=== PATIENT | male | born 1960 | race Caucasian/White ===

== ENCOUNTER 2017-04-30 14:00 | Inpatient (IN) | payer MEDICARE, MEDICAID ==
[~2017-04-30] VITALS: Ht 182.9 cm; Wt 99.1 kg
--- NOTE | ~2017-04-30 | CATH ---
Cardiac Diagnostic Report Demographics Patient Name JUSTYN Messina Gender Male Date of 1960 Age 56 year(s) Patient Number [id number] Date of Study 05/01/2017 Visit Number [id number] Room Number G6321 [place] [id number] Ht 182.88 cm Wt 92.99 kg Referring Maykel Fry Mayuri Primary Physician Physician Performing [facility] Secondary Physician Physician Mary BEAVERS Diagnostic [facility] Assisting Physician Physician Mary BEAVERS Interventional Physician Financial Engineer Physician Findings and Conclusions Diagnostic Findings and Conclusion Multiple vessel CAD. 1. Mid and mid distal LAD 90%. 2. RCA mid 80%. 3. OM branch (large) 90%. Diagnostic Recommendations CTS to evaluate for CABG. Reviewed images with Dr. Hodges, who is agreeable with CABG. Procedure Description The patient was brought to the diagnostic cardiac catheterization-EP laboratory in the fasting, non-sedated state. Informed consent was obtained in the written and verbal form after the risks and benefits were explained. The patient had no further questions and agreed to proceed. The planned puncture-incision site(s) were shaved and prepped with ChloraPrep and draped in the usual sterile manner. Conscious sedation, supplemental oxygen, and pain control medications were delivered by a registered nurse under physician guidance. Surface ECG rhythm, blood pressure measurement, and pulse oximetry were monitored throughout the procedure. Arterial access. The access site was infiltrated with lidocaine. The vessel was entered with the Seldinger technique. A sheath was advanced into the vessel and used for catheter placement. Selective left coronary angiography. A catheter was advanced into the left coronary vessel ostium under Fluoroscopic guidance. Contrast was injected by hand. Images were obtained in multiple projections. Selective right coronary angiography. A catheter was advanced into the right coronary vessel ostium under fluoroscopic guidance. Contrast was injected by hand. Images were obtained in multiple projections. Left heart catheterization. A catheter was advanced across the aortic valve to the left ventricle under fluoroscopic guidance. Resting hemodynamics were obtained. Arterial artery hemostasis was achieved. The patient was transferred to a regular nursing floor via cart accompanied by a nurse. The patient left the laboratory in stable condition. Diagnostic Cath Status: Urgent Procedure Procedure Type Diagnostic procedure:Angiography:, Coronary Angios w/[facility] Indications: Chest pain, Diabetes, Hypertension and Dyslipidemia. The procedure was explained in detail to the patient. Risks, complications and alternative treatments were reviewed. Written consent was obtained. Medications Reviewed with Patient prior to Procedure. Angiographic Findings Dominance: Right Cardiac Arteries and Lesion Findings LMCA: Lesion on LMCA: Mid subsection.40% stenosis . LAD: Lesion on Prox LAD: Proximal subsection.30% stenosis . Lesion on Mid LAD: Mid subsection.70% stenosis . Lesion on Dist LAD: Distal subsection.90% stenosis . Lesion on 3rd Diag: Ostial.70% stenosis . Comments:large diag 3. LCx: Lesion on Mid CX: Mid subsection.70% stenosis . Lesion on 1st Ob Ana Luisa: Proximal subsection.90% stenosis . RCA: Lesion on Mid RCA: Mid subsection.80% stenosis . Comments:long lesion. Lesion on 1st RPL: Proximal subsection.60% stenosis . Lesion on R PDA: Comments:PDA small severe diffusely diseased. Ramus: Lesion on Ramus: 20% stenosis . Comments:small Coronary Tree Procedure Data Procedure Date Date: 05/01/2017Start: 01:14 PMEnd: 01:45 PM Entry Locations - Retrograde Percutaneous access was performed through the Right Radial artery (Primary location). A 6 Fr sheath was inserted. Hemostasis was successfully obtained using Mechanical Compression. Closure Comments: 12 ml's of air in radial band placed by Carolynn Pride. Procedure Medications Order and Administration + + + + + !Time !Medication !Dosage !Route ! + + + + + !05/01/2017 01:12 PM !Versed !1 mg !I.V. ! + + + + + !05/01/2017 01:13 PM !Fentanyl !50 mcg !I.V. ! + + + + + !05/01/2017 01:22 PM !Versed !0.5 mg !I.V. ! + + + + + !05/01/2017 01:27 PM !Heparin (ACC_3) !5000 units !I.V. bolus ! + + + + + !05/01/2017 01:35 PM !Oxygen !4 l/min !NC ! + + + + + !05/01/2017 01:38 PM !Oxygen !2 l/min !NC ! + + + + + Devices Used - A5 Fr. BS JR 4 Diag. Catheterwas used for:Right coronary angiography. - A5 Fr. BS JL 3.5 Diag. Catheterwas used for:Left coronary angiography. Contrast Material - Isovue 74983 ml Fluoroscopy Time: Diagnostic: 2:48 minutes. Total: 2:48 minutes. Fluoroscopy Dose: Diagnostic: 952 mGy. Total: 952 mGy. Estimated Blood Loss: 10 ml. Medical History Performed Procedures and Imaging Results - No ACC stress or imaging studies were performed. History of Disease + + + + !Diagnosis !Date !Comments ! + + + + !Hypertension ! ! ! + + + + !Diabetes ! ! ! + + + + Allergies - No known allergies. Risk Factors The patient risk factors include:treated hypercholesterolemia, treated hypertension, orally-treated diabetes mellitus, last creatinine: 1.1 mg/dl, creatinine clearance: 99.8 ml/min, dyslipidemia and Current/Recent(w/in 1 year) tobacco use. Admission Data Admission Date: 04/30/2017 Admission Time: 03:08 PM Admit Source: [facility] Insurance Payors: Medicare. Admission Medications + +------+------+ +---------+ + + !Medication !Dosage!Times !Last !Last !Administered !Comments ! ! ! !Per !Delivery !Delivery ! ! ! ! ! !Day !Date !Time ! ! ! + +------+------+ +---------+ + + !ARB (any) ! ! !05/01/2017 !12:00 AM !Yes ! ! + +------+------+ +---------+ + + !Statin (any)! ! !05/01/2017 !12:00 AM !Yes ! ! + +------+------+ +---------+ + + !Aspirin ! ! !05/01/2017 !12:00 AM !Yes ! ! !(any) ! ! ! ! ! ! ! + +------+------+ +---------+ + + !YAHIR ! ! !05/01/2017 !12:00 AM !Yes ! ! !Inhibitor ! ! ! ! ! ! ! !(any) ! ! ! ! ! ! ! + +------+------+ +---------+ + + !Beta Kelsey! ! !05/01/2017 !12:00 AM !Yes ! ! !(any) ! ! ! ! ! ! ! + +------+------+ +---------+ + + !Nitrates (iv! ! ! ! ! ! ! !or buccal) ! ! ! ! ! ! ! + +------+------+ +---------+ + + Clinical Evaluation Leading to Procedure - The patient's CAD presentation was assessed as: Non-STEMI. - The patient's anginal syndrome during the past two weeks was assessed as: Class IV according to the [place] Cardiovascular Society Classification System (CCS). Anti-anginal medications were prescribed during the past two weeks. The medication is: Beta Blockers. - The patient has been in a state of heart failure within the past two weeks. - The patient's heart failure status was assessed as NYHA Class II. Hemodynamics Condition: Rest O2 Consumption: Estimated: 246.29Heart Rate: 60 bpm Pressures (mmHg) +-----+ + !Site !Pressure ! +-----+ + !LV !107/0 ,10 ! +-----+ + !LV !112/2 ,12 ! +-----+ + !LV !103/3 ,14 ! +-----+ + !AO !107/59 (79) ! +-----+ + !LV !98/3 ,13 ! +-----+ + !AO !111/60 (81) ! +-----+ + Valve Gradients and Areas + +---------+---------+---------+ +---------+ + !Valve !Peak !Mean !Area !Index !Flow !Source ! + +---------+---------+---------+ +---------+ + !Aortic !0 !0 ! ! ! ! ! + +---------+---------+---------+ +---------+ + !Aortic !0 !0 ! ! ! ! ! + +---------+---------+---------+ +---------+ + Shunts Oxygen Values O2 Capacity 208.08 O2 Consumption 246.29 Signatures dtt: MARY SOLIS dtd: 05/01/17 1314 Physician Self Edit
--- NOTE | ~2017-04-30 | PUL ---
PATIENT'S NAME: JOHN ALEJANDRA [facility] AGE: 56 Y [address] ROOM: [address] [address] LOCATION: [facility] ADMIT DATE: 05/02/2017 Pulmonary DISCHARGE DATE: FAMILY PHYSICIAN: OZZIE AMOR MD ATTENDING PHYSICIAN: Walter Mondragon NAME OF PROCEDURE: Bedside Spirometry DATE OF PROCEDURE: May 02, 2017 TECH: TMeents, FINANCIAL SALES ASSISTANT REASON FOR EXAM: Pre-surgical evaluation RESULTS: FVC was 3.81 liters which is 72% of predicted and low, FEV1 was 3.5 liters which is 87% of predicted and normal, and FEV1/FVC was 91.9% and normal. The flow volume curve did not reveal any significant airflow limitation. However, the patient had multiple hesitations and during the expiratory and inspiratory maneuvers. After bronchodilator administration FVC increased to 4.13 liters which is an 8% increase and FEV1 decreased to 3.43 liters. FEV1/FVC was 83%. PHYSICIAN INTERPRETATION: The patient has no airflow limitation and no significant bronchodilator response. The results have to be interpreted with care as the patient's maneuvers were not reproducible. MD KEMAL DÍAZ/terrence /[id number] dtt: 05/03/17 1428 , JOE CHAPMAN dtd: 05/03/17 1322
--- NOTE | ~2017-04-30 | ENPV ---
Carotid Duplex Study Demographics Patient Name JOHN ALEJANDRA Date of Study 05/02/2017 Patient Number [id number] Gender Male Date of 1960 Age 56 Visit Number [id number] Height 72 Accession Number [id number] Weight 205 Referring Carroll Rodgers DO Interpreting Hussain Worthy MD Physician Maykel Messina MD Physician Physician Ordering Carroll Rodgers Aboriginal Education Teacher Physician DO Diamond Die Maker Shant Johnson [facility] Conclusions Summary The right internal carotid artery has mild, 1-39%, plaque and stenosis. The right vertebral artery is present with antegrade flow. The left internal carotid artery has moderate, 40-59%, plaque and stenosis. The left vertebral artery is present with antegrade flow. Procedure Type of Study: Cerebral:Carotid, Carotid Doppler Bilateral. Indications for Study:Pre-op CABG. Appropriate Use Criteria:9 Allergies - No known allergies. Patient Status:Routine. Study Location:Inpatient Portable. Technical Quality:Adequate visualization. Risk Factors History of Disease + + + + !Diagnosis !Date !Comments ! + + + + !Hypertension ! ! ! + + + + !Diabetes ! ! ! + + + + - The patient's risk factor(s) include: orally-treated diabetes mellitus, dyslipidemia and treated arterial hypertension. - The patient has a current/recent (within 1 year) tobacco history. - The patient's last creatinine was 1.1 mg/dl. Velocities are measured in cm/s ; Diameters are measured in cm Carotid Right Measurements Carotid Left Measurements + +--------+--------+ + + + +--------+ --------+ + + !Location !PSV !EDV !Angle !%Stenosis ! !Location !PSV ! EDV !Angle !%Stenosis ! + +--------+--------+ + + + +--------+ --------+ + + !Prox CCA !124 !21 !60 ! ! !Prox CCA !170 ! 28 !60 ! ! + +--------+--------+ + + + +--------+ --------+ + + !Dist CCA !94 !28 !60 ! ! !Dist CCA !175 ! 25 !60 ! ! + +--------+--------+ + + + +--------+ --------+ + + !Prox ICA !110 !26 !60 ! ! !Prox ICA !119 ! 27 !60 ! ! + +--------+--------+ + + + +--------+ --------+ + + !Dist ICA !75 !23 !60 ! ! !Dist ICA !92 ! 18 !60 ! ! + +--------+--------+ + + + +--------+ --------+ + + !Prox ECA !158 !30 !60 ! ! !Prox ECA !240 ! 25 !60 ! ! + +--------+--------+ + + + +--------+ --------+ + + !Vertebral !42 !15 !60 ! ! !Vertebral !56 ! 13 !60 ! ! + +--------+--------+ + + + +--------+ --------+ + + !Subclavian !99 ! !60 ! ! !Subclavian !203 ! ! ! ! + +--------+--------+ + + + +--------+ --------+ + + - There is antegrade vertebral flow noted on the right side. - There is antegrade verte bral flow noted on the left side. - Add'l Measurements:ICAPSV/CCAPSV 0.89.ICAEDV/CCAEDV 1.24. - Add'l Measurements:ICAPS V/CCAPSV 0.7.ICAEDV/CCAEDV 0.96. Impressions Right Impression There is a mild amount of smooth heterogeneous plaque in the right internal carotid artery . Left Impression There is a moderate degree of smooth heterogeneous plaque in the left internal carotid artery . Signature dtt: MARISELA COSME dtd: 05/02/17 1453 Physician Self Edit
--- NOTE | ~2017-04-30 | DS ---
PATIENT'S NAME: JOHN ALEJANDRA [facility] AGE: 56 Y [address] ROOM: [address] [place], [place] [address] LOCATION: GPCU ADMIT DATE: 05/02/2017 Discharge Summary DISCHARGE DATE: 05/08/2017 FAMILY PHYSICIAN: Ang Brar MD ATTENDING PHYSICIAN: Walter Mondragon HISTORY AND HOSPITAL COURSE: The patient is a 56-year-old white male admitted as a non-STEMI on May 02, 2017, accepted by Dr. Hernandez under the ACS protocol. He went down to the cardiac catheterization lab with findings of multivessel coronary artery disease and was recommended for coronary artery bypass grafting. The patient has a complicated medical history. His secondary diagnoses include chronic pain syndrome; opioid abuse; diabetes mellitus type 2, poorly controlled with hemoglobin A1c of 10.6; anxiety/depression; diabetic peripheral neuropathy; hypertension; BPH; spinal stenosis, lumbar; tobacco abuse; hypothyroidism; GERD; bipolar disorder; myeloid leukemia, in remission; and monoclonal gammopathy. The patient was seen in Neurology and cleared prior to going down for surgery. Dr. Carcamo was contacted and the patient was noted to be in remission from his leukemia. On 05/03/2017, the patient underwent coronary artery bypass grafting x4 with a left internal mammary artery bypass to the LAD, reverse saphenous vein graft to the diagonal, reverse saphenous vein graft to the obtuse marginal, reverse saphenous vein graft to the posterolateral branch. The patient tolerated the surgery without complication. He was transferred to the ICU in an intubated fashion following the procedure. He extubated within a few hours postop. Pain control was an issue. The patient was excessively somnolent. His pain medication was adjusted. He overall did well thereafter. On postoperative day 1, the patient was found to be stable to transfer to the progressive care floor. Lines and drips were discontinued. We did add Toradol to his pain medication regime for a short period of time. When appropriate, his pacemaking wires, chest tube, and Gunter catheter were discontinued. He worked with cardiac rehab for strengthening purposes. The patient did not have any healing complications while hospitalized. He had no runs of postoperative atrial fibrillation. His diabetic medications were adjusted during the hospitalization. Care Management worked with the patient and his significant other to ascertain any needs that he may have upon discharge. The patient did not have any skilled needs. He desired to go home postoperatively, and on May 07, he was found stable for discharge. DISCHARGE ORDERS: Include ADA diet. Activity levels as per the open heart surgery discharge summary sheet. The patient was asked to follow with Dr. Saavedra and Dr. Hernandez in 2 weeks on the same day. We request that the PATIENT'S NAME: JOHN ALEJANDRA [facility] AGE: 56 Y [address] ROOM: [id number] [place] [id number] LOCATION: GPCU ADMIT DATE: 05/02/2017 Discharge Summary DISCHARGE DATE: 05/08/2017 FAMILY PHYSICIAN: Ang Brar MD ATTENDING PHYSICIAN: Walter Mondragon patient perform no pulling, pushing, or lifting heavier than 10 pounds until June 14, 2017. He may shower. We would like him to starting cardiac rehab as outpatient. He is to follow with his primary care provider, Dr. Brar. The patient was seen by diabetic educators while hospitalized. He did not desire further instruction. DISCHARGE MEDICATIONS: 1. Xanax 1 mg q.i.d. 2. Ambien 10 mg at h.s./p.r.n. 3. Prilosec 20 mg twice a day. 4. Levothyroxine 50 mcg daily. 5. Flomax 0.4 mg daily. 6. Cozaar 50 mg daily. 7. Neurontin 600 mg t.i.d. 8. Xalatan 1 drop at bedtime. 9. Breo Ellipta 100/25 mcg 1 puff per inhalation daily. 10. Vitamin D3 5000 units daily. 11. Glucophage 1000 mg twice a day. 12. Amaryl 4 mg daily. 13. [place] 10/325 mg 2 tabs t.i.d./p.r.n. 14. Lipitor 80 mg daily. 15. Nitroglycerin 0.4 mg sublingual q.5 minutes as needed. 16. Celexa 20 mg daily. 17. Cordarone 200 mg twice a day. 18. Aspirin 81 mg daily. 19. Colace 100 mg twice a day. 20. Lasix 40 mg daily. 21. Toprol-XL 25 mg daily. 22. Nicotine patch 21 mg daily. 23. Potassium chloride 20 mEq twice a day. DISPOSITION: The patient verbalizes understanding of the discharge orders. The patient discharged to home in stable condition end. LIAM DONALDSON APRN FOR SAEED SAAVEDRA DO DLQ/modl /[id number] d: 05/23/17 0238 t: 05/28/17 0826, DISCHARGE SUMMARY
--- NOTE | ~2017-04-30 | CON ---
PATIENT'S NAME: JOHN ALEJANDRA [facility] AGE: 56 Y [address] ROOM: [address] [place], [place] [address] LOCATION: GICU ADMIT DATE: 05/02/2017 Consultation DISCHARGE DATE: FAMILY PHYSICIAN: OZZIE AMOR MD ATTENDING PHYSICIAN: Walter Mondragon DATE OF CONSULTATION: 05/01/2017 REFERRING PHYSICIAN: MARY SOLIS MD REASON FOR CONSULTATION: STEMI/coronary artery disease. HISTORY OF PRESENT ILLNESS: The patient is a 56-year-old white male from [place], [place], who has been experiencing intermittent chest pain for the last 3 weeks. Yesterday, he was transferred here from the [place] [facility]. He had apparently been in a verbal altercation with some folks and started up with the chest pain, this time more severe than what it has been in the past. It was associated with diaphoresis and nausea. He called his daughters and he went into the emergency department. He was found to have an elevated CK-MB and ST depression. Dr. Solis was notified and she requested the transfer as per the ACS protocol. The patient had agreed to the heparin drip; however, he did decline nitroglycerin. He got here in a stable fashion. He was taken to the catheterization lab this morning with findings of multiple blockages, with diffuse RCA obstruction, some mild blockage to the left main and mid LAD at approximately 80% obstruction and occlusion to the OM and the diagonals. His ejection fraction was noted to be in a normal range. Given the multiple blockages, Dr. Solis felt that moving forward with a coronary artery bypass grafting was appropriate over placing stents. The patient was transferred to the progressive care floor and Dr. Saavedra was asked to see the patient in consultation regarding surgical revascularization. PAST MEDICAL HISTORY: Illnesses: Dyslipidemia; GERD; bipolar disorder; anxiety/depression; opioid abuse; peripheral neuropathy; diabetes mellitus, poorly controlled; hypothyroidism; polyneuropathy; myeloid leukemia, in remission; osteoarthritis. Surgeries/procedures: Partial thyroidectomy; pilonidal cyst excision x2; left knee surgery x5; cholecystectomy; right sural nerve biopsy; right scalp muscle nerve biopsy; and a lumbar puncture. ALLERGIES: NO KNOWN DRUG ALLERGIES. PATIENT'S NAME: JOHN ALEJANDRA [facility] AGE: 56 Y [address] ROOM: [facility] [place], [place] [address] LOCATION: [facility] ADMIT DATE: 05/02/2017 Consultation DISCHARGE DATE: FAMILY PHYSICIAN: OZZIE AMOR MD ATTENDING PHYSICIAN: Walter Mondragon SOCIAL HISTORY: The patient resides in [place]. He has a significant other. He has a couple grown daughters who live nearby. He is deemed medically disabled and therefore retired from the [employer]. He is a smoker and states that he can smoke up to 50 cigarettes per day. He does not consume alcohol. He drinks 9-12 Mountain Dews a day. FAMILY HISTORY: His mother is alive and has a history of dementia. His father has a history with coronary artery disease as well as valvular heart disease. He also had kidney failure and leukemia. ADMISSION MEDICATIONS: 1. Xanax 1 mg p.o. q.i.d. 2. Augmentin 250 mg p.o. t.i.d. for dental issues. 3. Lipitor 80 mg daily. 4. Vitamin D3 5000 units every 7 days. 5. Celexa 10 mg daily. 6. Breo Ellipta 100/25 mcg 1 puff per inhalation daily. 7. Neurontin 300 mg t.i.d. 8. Amaryl 4 mg daily. 9. [place] 10/325 mg 2 tabs t.i.d./p.r.n. 10. Xalatan 2.5 mL drops, 1 drop both eyes at bedtime. 11. Levothyroxine 50 mcg daily. 12. Cozaar 25 mg a day. 13. Glucophage 1000 mg b.i.d. 14. Nitroglycerin 0.4 mg sublingual as directed. 15. Prilosec 20 mg b.i.d. 16. Flomax 0.4 mg daily. 17. Ambien 10 mg q.h.s./p.r.n. insomnia. REVIEW OF SYSTEMS: GENERAL: No weight or appetite complaints. No fever, chills, or sweats. HEENT: Does have some age-related visual changes as well as some glaucoma. He wears glasses. No hearing complaints. No difficulty swallowing. He does have poor dentition and does have a lower [place] denture. He is in the midst of getting some dental work done. RESPIRATORY: He has been experiencing some shortness of breath as well as dyspnea on exertion. He has history of sleep apnea. He does not use a CPAP. CARDIOVASCULAR: He has had an onset of chest pain that has been intermittent for at least 3 weeks and yesterday he had fairly significant chest pain that brought him in to the emergency department. No history of murmur. No intermittent claudication or complaints of ongoing edema to the peripheral extremities. GI: No ongoing nausea, vomiting, constipation, or diarrhea. However, he was PATIENT'S NAME: JOHN ALEJANDRA [facility] AGE: 56 Y [address] ROOM: [place] [address] LOCATION: GICU ADMIT DATE: 05/02/2017 Consultation DISCHARGE DATE: FAMILY PHYSICIAN: OZZIE AMOR MD ATTENDING PHYSICIAN: Walter Mondragon nauseated with the chest pain. No blood in the stools or black tarry stools. He does have GERD and takes medication. : Does have urinary incontinence at times. MUSCULOSKELETAL: Does have chronic shoulder and back pain. NEUROLOGIC: He will have severe headaches at times. He does have a history of polyneuropathy and is requiring further workup. He does have dizziness at times and he does experience numbness and tingling in his hands and feet bilaterally. PSYCHIATRIC: Include history of bipolar disorder, anxiety, and depression. INTEGUMENTARY: No known skin diseases. PHYSICAL EXAMINATION: VITAL SIGNS: Blood pressure 103/57, pulse is 65, respirations 12, temp 96.8, O2 saturations 96% on 2 L. Height is 182.3 cm and weight is 93 kg. GENERAL: The patient is surprisingly jovial. He, however, does monopolize the conversation, and details do require being repeated frequently. HEENT: Normocephalic with EOMI's intact. The patient appears slightly older than his stated age. His teeth are in poor repair. LUNGS: Clear to auscultation to the anterior bilaterally. CARDIOVASCULAR: Regular rate and rhythm with no murmur noted. ABDOMEN: Obese, soft, nontender by 4 quadrants with positive bowel sounds throughout. EXTREMITIES: No clubbing, cyanosis, or edema. MUSCULOSKELETAL: Good range of motion to bilateral upper and lower extremities. NEUROLOGIC: Alert and oriented with symmetrical strength. SKIN: No suspicious skin lesions. LABORATORY AND TEST RESULTS: CMS: Sodium is 142, potassium 3.9, BUN 29, creatinine 1.1. Alkaline phosphatase is 191. Lipid profile shows a cholesterol of 131, triglyceride 114, HDL 34, and LDL 75. His CPK is 593, CK-MB 14.9, and troponin I is less than 0.040. The CBC shows a white blood cell count of 9.4, hemoglobin 15.3, hematocrit 43.8, platelets 218. His INR is 0.99. His cardiac catheterization is as per HPI. IMPRESSION: 1. Non-ST segment myocardial infarction. 2. Coronary artery disease. 3. Probable chronic obstructive pulmonary disease. 4. Poorly controlled diabetes mellitus. 5. Polyneuropathy. 6. Myeloid leukemia. 7. Bipolar disorder. PATIENT'S NAME: JOHN ALEJANDRA [facility] AGE: 56 Y [address] ROOM: [place] [address] LOCATION: [facility] ADMIT DATE: 05/02/2017 Consultation DISCHARGE DATE: FAMILY PHYSICIAN: OZZIE AMOR MD ATTENDING PHYSICIAN: Walter Mondragon RECOMMENDATION AND PLAN: Dr. Saavedra reviewed the cardiac catheterization with the family and spoke with the patient about the findings. The patient will require a 4 vessel bypass. This to the PDA, LAD, OM, and diagonal. Risks and benefits of the procedure were discussed. Discussion of the risks includes, but were not limited to, bleeding requiring transfusion or return to the operative suite, myocardial infarction, cerebrovascular accident, renal and/or pulmonary failure. Also discussed were arrhythmias and infection as well as operative and postoperative mortality. In addition, length of stay and sternal precautions following the surgery were discussed. The patient does consent to proceed with surgery. We are planning for May 03. We will perform preoperative workup. We will have Neurology see the patient given his history with a polyneuropathy. We will also obtain records from Dr. Carcamo's office indicating the status of the myeloid leukemia. We would like to thank Dr. Mary Solis for allowing us to participate in the care of this gentleman. LIAM DONALDSON APRN FOR SAEED SAAVEDRA DO DLQ/modl /[id number] d: 05/02/17 1734 t: 05/09/17 1321, CONSULTATION REPORT
--- NOTE | ~2017-04-30 | OR ---
PATIENT'S NAME: JOHN DELAROSA [facility] AGE: 56 Y [address] ROOM: [address] [address] LOCATION: GICU ADMIT DATE: 05/02/2017 OR/Procedure Report DISCHARGE DATE: FAMILY PHYSICIAN: OZZIE BRAR MD ATTENDING PHYSICIAN: Walter Mondragon SURGEON: Tanmay Hodges DO ALL ROUND BUTCHER: DATE OF PROCEDURE: 05/03/2017 PREOPERATIVE DIAGNOSES: 1. Multivessel coronary artery disease. 2. Yol-CV-jwayqgo myocardial infarction. 3. Poorly-controlled diabetes. Hemoglobin A1c 10.6. 4. Chronic opioid abuse. POSTOPERATIVE DIAGNOSES: 1. Multivessel coronary artery disease. 2. Mkm-RQ-sxpoczh myocardial infarction. 3. Poorly-controlled diabetes. Hemoglobin A1c 10.6. 4. Chronic opioid abuse. PROCEDURE: Coronary artery bypass grafting x4, left internal mammary artery bypass to the LAD, reverse saphenous vein graft to the diagonal, reverse saphenous vein graft to the obtuse, marginal reverse saphenous vein graft to the posterolateral branch. REFERRING PHYSICIAN: Mary Hannon MD BRIEF HISTORY: Mr. Delarosa is a 56-year-old, white male with the above-noted diagnosis. He has been brought to the operative suite today after informed consent was obtained for surgical revascularization. DESCRIPTION OF PROCEDURE: He was sterilely prepped and draped in usual fashion for sternotomy with lower extremity vein harvest. A sternal incision was made and the sternum was divided in midline with the sternal saw. Concurrently to this, saphenous vein was harvested endoscopically from the lower extremities. The mammary retractor was placed and the left internal mammary artery was identified and harvested utilizing surgical clips and electrocautery. The patient was then fully heparinized and the mammary was divided and prepared for bypass. Mammary retractor was removed and a sternal retractor was placed. Pericardium was opened and pericardial wall was created. Cannulation sutures then placed in the ascending aorta and right atrium for bypass and cardioplegia cannulas, and the patient was cannulated and connected to the bypass pump without difficulty. The vein was then prepared for bypass. Cardiopulmonary bypass was now initiated and a cross- PATIENT'S NAME: JOHN DELAROSA [facility] AGE: 56 Y [address] [address] LOCATION: [facility] ADMIT DATE: 05/02/2017 OR/Procedure Report DISCHARGE DATE: FAMILY PHYSICIAN: OZZIE BRAR MD ATTENDING PHYSICIAN: Walter Mondragon clamp was applied. Antegrade and retrograde cardioplegia along with topical cold saline was used for cardiac arrest and the heart arrested without difficulty. The posterolateral branch was identified and opened, and end-to- side vein graft anastomosed to this with 7-0 Prolene. It was sized appropriately. Another 500 mL of vein graft and retrograde cardioplegia was given. This was done after each venous distal anastomosis. Similar venous distal anastomoses were then created to the obtuse marginal and then diagonal, and then the left internal mammary artery was anastomosed to the left anterior descending artery again in end-to-side fashion with 7-0 Prolene. The bulldog was removed from the mammary and distal flow was appreciated in the LAD as well as an intact anastomosis. The cross-clamp was now removed and a partial occlusion clamp was applied. Warm blood was now given via the retrograde cannula and via the vein grafts. Two of our 3 proximal was performed under partial occlusion clamping using 4-0 punch and 6-0 Prolene. With this completed, the partial occlusion clamp was removed, vein grafts de-aired, and bulldogs were removed giving distal flow. We then formed our last proximal to the ascending aorta utilizing 4.3 heartstring device and then 6-0 Prolene. Once this was completed, again the graft was de-aired, bulldog removed, and distal flow was given. Distal sites were hemostatic. Proximal site was hemostatic. Warm blood was now discontinued and the retrograde cannula was removed. Ventilations were initiated. Two atrial, 1 ventricular temporary pacemaking wires were placed. Atrial pacing at 80 was initiated and we weaned from cardiopulmonary bypass without difficulty. Venous cannula was removed. Appropriate volume returned from the pump to the patient. The ascending aortic cannula was removed and protamine was given. Copious amounts of antibiotic-infused saline was used to irrigate the sternum and the mediastinum and then 3 chest tubes were placed, 1 left pleural, 1 posterior pericardial, 1 anterior mediastinal. The sternum was then approximated with ZipFix system. Soft tissues were irrigated again and closed in a layered fashion. All sponge, instrument, and needle counts were correct, and the patient was transferred to the intensive care in stable condition. DO MARY GRACE EMMANUEL/cari /[id number] CC: Ozzie Brar MD d: 05/03/17 1811 t: 05/04/17 0751, OPERATIVE SUMMARY
--- NOTE | ~2017-04-30 | PUL ---
PATIENT'S NAME: JOHN ALEJANDRA [facility] AGE: 56 Y [address] ROOM: [address] [address] LOCATION: GPCU ADMIT DATE: 05/02/2017 Pulmonary DISCHARGE DATE: 05/08/2017 FAMILY PHYSICIAN: Ang Brar MD ATTENDING PHYSICIAN: Walter Mondragon NAME OF PROCEDURE: Overnight Pulse Oximetry DATE OF PROCEDURE: May 07 to May 08, 2017 REASON FOR PROCEDURE: Nocturnal hypoxemia RESULTS: The test was performed on room air. The recording time was 9 hours, 12 minutes, and 48 seconds. The highest pulse was 94, lowest pulse was 65, with a mean pulse of 79. The highest SpO2 was 99%, lowest was 77%, with a mean SpO2 of 90.6%. The desaturation event index was elevated at 44.5. The saturation was below 88% for more than 5 cumulative minutes. PHYSICIAN INTERPRETATION: The patient has evidence of significant nocturnal hypoxia and would qualify for supplemental oxygen as per Medicare criteria. Sleep study would be recommended at this time. MD PAIGE HIRSCH/terrence /[id number] dtt: 05/17/17 1636 , GEORGES PACHECO dtd: 05/14/17 1311
--- NOTE | ~2017-04-30 | ENPV ---
Vascular Lower Extremity Vein Mapping and Lower Extremities DVT Study Procedure Demographics Patient Name JOHN ALEJANDRA Date of Study 05/02/2017 Patient Number [id number] Gender Male Date of 1960 Age 56 Visit Number [id number] Height 72 Accession Number [id number] Weight 205 Referring Carroll Rodgers DO Interpreting Hussain Worthy MD Physician Maykel Messina MD Physician Physician Ordering Carroll Rodgers Field Sales Executive Physician DO Living Supervisor Shant Johnson RDCS, RVT Conclusions Summary No evidence of deep vein thrombosis or superficial thrombophlebitis in the lower extremities bilaterally . Bilateral greater saphenous veins mapped and marked. Procedure Type of Study: Veins:Lower Extremity Vein Mapping, Vein Mapping NH, Lower Extremities DVT Study, Venous Duplex Lower Extremity Bilateral. Indications for Study:Pre-op CABG. Appropriate Use Criteria:9 Allergies - No known allergies. Patient Status:Routine. Study Location:Inpatient Portable. Technical Quality:Adequate visualization. Risk Factors History of Disease + + + + !Diagnosis !Date !Comments ! + + + + !Hypertension ! ! ! + + + + !Diabetes ! ! ! + + + + - The patient's risk factor(s) include: orally-treated diabetes mellitus, dyslipidemia and treated arterial hypertension. - The patient has a current/recent (within 1 year) tobacco history. - The patient's last creatinine was 1.1 mg/dl. Velocities are measured in cm/s ; Diameters are measured in cm Right Lower Extremities DVT Study Measurements Right 2D and Doppler Measurements + + + + +------+------+ + !Location !Visualized!Compressibility!Thrombosis!Signal!Reflux!Reflux ! ! ! ! ! ! ! !(sec) ! + + + + +------+------+ + !GSV Thigh !Yes !Yes !None !Phasic! ! ! + + + + +------+------+ + !Common !Yes !Yes !None !Phasic! ! ! !Femoral ! ! ! ! ! ! ! + + + + +------+------+ + !Prox !Yes !Yes !None !Phasic! ! ! !Femoral ! ! ! ! ! ! ! + + + + +------+------+ + !Mid Femoral!Yes !Yes !None !Phasic! ! ! + + + + +------+------+ + !Dist !Yes !Yes !None !Phasic! ! ! !Femoral ! ! ! ! ! ! ! + + + + +------+------+ + Left Lower Extremities DVT Study Measurements Left 2D and Doppler Measurements + + + + +------+------+ + !Location !Visualized!Compressibility!Thrombosis!Signal!Reflux!Reflux ! ! ! ! ! ! ! !(sec) ! + + + + +------+------+ + !GSV Thigh !Yes !Yes !None !Phasic! ! ! + + + + +------+------+ + !Common !Yes !Yes !None !Phasic! ! ! !Femoral ! ! ! ! ! ! ! + + + + +------+------+ + !Prox !Yes !Yes !None !Phasic! ! ! !Femoral ! ! ! ! ! ! ! + + + + +------+------+ + !Mid Femoral!Yes !Yes !None !Phasic! ! ! + + + + +------+------+ + !Dist !Yes !Yes !None !Phasic! ! ! !Femoral ! ! ! ! ! ! ! + + + + +------+------+ + Velocities are measured in cm/s ; Diameters are measured in cm + ++--------++--------+ !Superficial - Great Saphenous Vein !!Right !!Left ! + ++--------++--------+ !Location !!Diameter!!Diameter! + ++--------++--------+ !Sapheno Femoral Junction !!0.56 !!0.49 ! + ++--------++--------+ !GSV High Thigh !!0.52 !!0.47 ! + ++--------++--------+ !GSV Mid Thigh !!0.32 !!0.37 ! + ++--------++--------+ !GSV Low Thigh !!0.26 !!0.29 ! + ++--------++--------+ !GSV Knee !!0.28 !!0.29 ! + ++--------++--------+ !GSV High Calf !!0.3 !!0.35 ! + ++--------++--------+ !GSV Mid Calf !!0.29 !!0.23 ! + ++--------++--------+ !GSV Low Calf !!0.28 !!0.33 ! + ++--------++--------+ !GSV Ankle !!0.42 !!0.33 ! + ++--------++--------+ - Number of vein branches on the right side:1 above knee. - Number of vein branches on the left side:1 above knee and 1 below knee. Signature dtt: MARISELA COSME dtd: 05/02/17 1516 Physician Self Edit
--- NOTE | ~2017-04-30 | CON ---
PATIENT'S NAME: JOHN DELAROSA [facility] AGE: 56 Y [address] ROOM: G6321 [place], [place] [address] LOCATION: GPCU ADMIT DATE: 04/30/2017 Consultation DISCHARGE DATE: FAMILY PHYSICIAN: OZZIE AMOR MD ATTENDING PHYSICIAN: Walter Mondragon REFERRING PHYSICIAN: NORBERT SOLIS MD REQUESTING PROVIDER: Walter Mondragon M.D. REASON FOR CONSULTATION: Elevated cardiac enzymes and chest pain. HISTORY OF PRESENTING ILLNESS: The patient is a 56-year-old male, who has extensive history of psych issues including panic attacks, depression, as well as anxiety. He has had history of abnormal stress test several years ago and apparently Dr. Rubio saw him at that time. He recommended cardiac cath and the patient refused. He also reports nitro was given in the past and he had severe headaches with nitro use. The patient presents in today to the [place] [facility] with complaints of chest tightness. It is like a band around his chest. It started at around 11 o'clock today and he was just sitting at that time. It has been constant, pressure type associated with shortness of breath and diaphoresis and the patient reports he has had about three episodes in the recent past, two episodes since the past one day. When he came into the ER, he really did not have any of those symptoms. He refused nitro. Aspirin four chewable 81 mg were given. His CK-MB and CPK were elevated in the outside ER at [place]. He did have a right bundle-branch block with mild ST depressions in the lateral leads. That did improve on repeat EKG after aspirin was given. The patient is diabetic. The patient does not have any palpitations or dizziness. He does not have any PND, orthopnea, or lower extremity edema. The patient is a poor historian and appears quite stressed out during the conversation. The patient does not have any chest pain during interview. The patient has peripheral neuropathy in the lower extremities. He does not have any fever, chills, or stroke-like symptoms. No nausea, vomiting, diarrhea, or constipation. No cough or sputum production. PAST MEDICAL HISTORY: Diabetes, hypertension, and sleep apnea. He does report having some sort of PATIENT'S NAME: JOHN DELAROSA [facility] AGE: 56 Y [address] ROOM: [place] [address] LOCATION: GPCU ADMIT DATE: 04/30/2017 Consultation DISCHARGE DATE: FAMILY PHYSICIAN: OZZIE AMOR MD ATTENDING PHYSICIAN: Walter Mondragon leukemia for which he was treated and apparently in remission and sees Dr. Carcamo for that. He also has chronic back pain and numerous pain issues for which he sees Dr. Ricketts. He also has urinary incontinence off and on. Panic attacks and anxiety. PAST SURGICAL HISTORY: Cholecystectomy, multiple knee surgeries, and ankle surgeries. ALLERGIES: NONE. HOME MEDICATIONS: He is on: 1. Xanax 0.25 q.i.d. 2. Glipizide 10 mg b.i.d. 3. Aspirin 81 daily. 4. Symbicort inhaler one puff p.r.n. 5. Synthroid 75 mcg daily. 6. Omeprazole 20 daily. 7. Lortab for pain as needed. FAMILY HISTORY: Positive for coronary artery disease. No sudden cardiac . Social History: Patient continues to smoke, no illicit drug abuse or alcohol abuse. REVIEW OF SYSTEMS: All review of systems discussed with the patient. Pertinent positives and negatives mentioned in the history of presenting illness. PHYSICAL EXAMINATION: VITAL SIGNS: Blood pressure 113/80, respirations 16, and pulse is in the 70s. He is saturating greater than 90% on room air. GENERAL: He is a 56-year-old male. He is alert and oriented to time, place, and person. He is a poor historian. HEAD: Normocephalic and atraumatic. EYES: Sclerae white. No xanthelasmas. Mucous membranes moist. HEART: S1 and S2, regular rate and rhythm. No murmurs, gallops, or rubs. LUNGS: Clear to auscultation bilaterally. ABDOMEN: Soft. Bowel sounds positive. MUSCULOSKELETAL: Good range of motion. NEURO: Able to move all extremities against gravity. SKIN: Warm and dry. LABORATORY DATA: EKG, normal sinus rhythm with right bundle-branch block. PATIENT'S NAME: JOHN DELAROSA [facility] AGE: 56 Y [address] ROOM: [place] [address] LOCATION: GPCU ADMIT DATE: 04/30/2017 Consultation DISCHARGE DATE: FAMILY PHYSICIAN: OZZIE AMOR MD ATTENDING PHYSICIAN: Walter Mondragon LABORATORY DATA: Sodium is 142, potassium 3.9, chloride 110, BUN 29, and creatinine 1.1. Alkaline phosphatase is 191, AST is 40, ALT is 52, and GFR greater than 60. Magnesium 2. LDL is 75. Triglycerides 114. Total cholesterol is 131. CPK is elevated at 593. CK-MB is elevated at 14.9. WBC 9.4, H and H 15.3 and 43.8, and platelets are 219. In the outside hospital, CK-MB was 14 and CPK was also elevated at the outside hospital. IMPRESSION: 1. Cyi-GD-ihqiaheou myocardial infarction with evidence of chest discomfort, two episodes in 24 hours. There is evidence of recurrent chest pain at rest. CCS class 4. He also has right bundle-branch block on EKG with pronounced ST depressions in the lateral leads that did improve later on after aspirin was given and heart rate was lower. His JAZMIN score is 4. I agree with ACS protocol and heparin drip. The patient is refusing nitro because of severe headache with that. However, he is chest pain free at this time. Risks and benefits discussed with the patient regarding cardiac cath and possible PCI. Risk of bleed, bruise, infection 1 in 100 cases and risk of heart attack, , stroke, CA, losing a limb, ending up on dialysis, emergency bypass surgery, less than 1 in 1000 cases. The patient understands and is agreeable to proceed with plan. 2. Tobacco abuse. Counseled extensively against tobacco use and he will use nicotine patch while he is in-house. 3. Obstructive sleep apnea. Discussed importance of being compliant with CPAP. 4. Hypothyroidism. Please continue his Synthroid to maintain euthyroidism. 5. N.p.o. after midnight for possible cath and PCI in the morning. Continue to trend serial enzymes. If he has more chest pain, we may have to take him sooner. 6. We will start IV hydration prior to the cardiac cath. Thank you very much for allowing us to participate in the care of Mr. Delarosa. NORBERT TUNUGUNTLA, MD AT/haydeel /[id number] d: 04/30/17 232 t: 05/01/1706, CONSULTATION REPORT
--- NOTE | ~2017-04-30 | CON ---
PATIENT'S NAME: JOHN ALEJANDRA [facility] AGE: 56 Y [address] ROOM: [address] [place], [place] [address] LOCATION: GPCU ADMIT DATE: 05/02/2017 Consultation DISCHARGE DATE: FAMILY PHYSICIAN: OZZIE MAOR MD ATTENDING PHYSICIAN: Walter Mondragon DATE OF CONSULTATION: 05/02/2017 REFERRING PHYSICIAN: NORBERT SOLIS MD TIME OF CONSULTATION: 2:15 p.m. CHIEF COMPLAINT: Preoperative clearance. HISTORY OF PRESENT ILLNESS: This is a 56-year-old white male who has a history of chronic pain syndrome and opioid dependence. He was transferred to [facility] from [place] [facility] on the with complaints of chest pain. He had awoken with chest pain and he states he has been having chest pain off and on substernally. He was a little short of breath and lightheaded, so he came to the hospital and it is found that he definitely needs a CABG for his vessels. The patient denies any fevers, chills, or sweats. He has no congestion or cough. He denies headache or vision changes. He has had no dizziness or nausea. He has no history of any sort of trauma. He does have chronic low back pain and right foot and lower extremity numbness. He has been worked up for polyneuropathy in 2013. Tests include a sural nerve biopsy, scalp muscle biopsy, immunoelectrophoresis, an EMG, a lumbar puncture, and referrals to Neurology and Oncology. The findings include, the sural nerve biopsy showed a denervation atrophy with reinnervation. The scalp muscle biopsy shows a slight myopathy. The immunoelectrophoresis did show an an IgE kappa monoclonal protein. The working diagnosis for this patient was monoclonal gammopathy. He did go to see Dr. Hernandez Carcamo of Oncology for possible consideration of MGUS which was negative. He was offered chemotherapy at that time, but declined treatment. He has not been to see Neurology nor Oncology since that time. He has also had an EMG which shows sensory neuropathy in the upper and lower extremities along with right ulnar neuropathy. He describes his pain on his feet as numbness and tingling. He does see Dr. Cedeno's, pain specialist for his pain. ALLERGIES: NO KNOWN ALLERGIES. ILLNESS: 1. Chronic pain syndrome. PATIENT'S NAME: JOHN ALEJANDRA [facility] AGE: 56 Y [address] ROOM: [address] [place], [place] [address] LOCATION: GPCU ADMIT DATE: 05/02/2017 Consultation DISCHARGE DATE: FAMILY PHYSICIAN: OZZIE AMOR MD ATTENDING PHYSICIAN: Walter Mondragon 2. Opioid dependence. 3. Diabetes mellitus type 2. 4. Anxiety. 5. Monoclonal gammopathy. 6. Hypothyroidism. 7. Essential hypertension. 8. BPH. 9. Lumbar spinal stenosis. CURRENT MEDICATIONS: 1. Xanax 1 mg p.o. b.i.d. 2. Vitamin D3, 5000 units p.o. q. week. 3. Lexapro 10 mg p.o. daily. 4. Breo Ellipta 100/25 one puff p.o. daily. 5. Gabapentin 300 mg p.o. t.i.d. 6. Xalatan ophthalmic drops 1 drop each eye at h.s. 7. Levothyroxine 50 mcg p.o. daily. 8. Losartan 50 mg p.o. daily. 9. Metformin 1000 mg p.o. daily. 10. Omeprazole 20 mg p.o. b.i.d. 11. Flomax 0.4 mg p.o. daily. 12. Ambien 10 mg p.o. q.h.s. p.r.n. insomnia. FAMILY HISTORY: Positive for diabetes in his mother. SOCIAL HISTORY: He is and lives in [place], although he states he does have a new girlfriend. He has two daughters who live nearby and provide good assistance. He does have a 30- to 35-vutp-odie history of smoking tobacco and continues to smoke a pack of cigarettes a day. He does have a history of heavy alcohol use but that is currently not a problem for him as he states he has quit. He denies any illicit drug use. REVIEW OF SYSTEMS: Negative except as those mentioned in the HPI. All systems were reviewed. OBJECTIVE: VITAL SIGNS: Temperature is 98, pulse 72, respirations 18, blood pressure 113/67, weight is 93 kilograms. GENERAL: He is anxious, cooperative, in no acute distress. HEENT: Normocephalic and atraumatic. Sclerae are nonicteric. Pupils are round, reactive to light and accommodation. His extraocular movements are intact. NECK: Supple without masses or adenopathy. No carotid bruits auscultated. PATIENT'S NAME: JOHN ALEJANDRA [facility] AGE: 56 Y [address] ROOM: [id number] [place] [id number] LOCATION: GPCU ADMIT DATE: 05/02/2017 Consultation DISCHARGE DATE: FAMILY PHYSICIAN: OZZIE AMOR MD ATTENDING PHYSICIAN: Walter Mondragon HEART: Regular without murmurs. LUNGS: Diminished bilaterally. ABDOMEN: Soft, nontender, with positive bowel sounds. EXTREMITIES: No cyanosis or edema. NEUROLOGIC: The patient appears slightly anxious and is very talkative. He is oriented x4. He appears to be a fairly good historian. Upper and lower motor strength is 5/5. Deep tendon reflexes are 2+ bilaterally. He has a stocking and glove distribution of numbness and tingling to his hands and feet with no sensory inputs at his fingertips and tips of his toes. DIAGNOSTIC IMAGING AND TESTS: Many tests that were reviewed from 2014 include the sural nerve biopsy, the scalp muscle biopsy, immunoelectrophoresis, cervical MRI, brain MRI, thoracic MRI, and lumbar MRI. There is nothing concerning on any of these tests except the monoclonal gammopathy picture as mentioned above. His EMG was also completed in 2013 that shows sensory neuropathy, upper and lower, with right ulnar neuropathy. ASSESSMENT AND PLAN: This patient with monoclonal gammopathy, unfortunately has quite a bit of numbness and tingling which seems under control for him as he has not sought care for 2 years to monitor. He does have an appointment with Dr. Singh in [place] which we would support following up with a neurologist after surgery. In no way should his condition affect his ability to have surgery and with the monoclonal gammopathy he should be at no higher risk for stroke or untoward event than any other patient undergoing the procedure. If you have any questions, please notify Dr. Flores or myself. Dr. Flores and I talked with the patient and his family who was at bedside. We relayed the information to Dr. Hodges, CV surgeon. If there are any questions, please do not hesitate to notify us. Thank you for this opportunity to participate in the patient's care. TONJA MCLEOD APRN FOR VONDA FLORES MD PP/modl /[id number] d: 05/02/17 2245 t: 05/08/17 1841, CONSULTATION REPORT
--- NOTE | ~2017-04-30 | ECHO ---
Transthoracic Echocardiography Report (TTE) Demographics Patient Name JOHN ALEJANDRA Date of Study 05/01/2017 Patient Number [id number] Visit Number [id number] Date of 1960 Room Number G6321 Gender Male Number Age 56 year(s) Referring Giancarlo Graham MD Grain Grader Elo Cedillo RVT Physician Parvez Hernandez MD Physician Interpreting Parvez Hernandez Funeral Arranger Physician Supervising Ordering Parvez Hernandez MD/MLP Physician Nurse Stress Butter Liquefier Conclusions Contractility Score Summary Normal Left Ventricular contractility was noted. Summary The estimated left ventricular ejection fraction is 60-65%. Mild concentric left ventricular hypertrophy. Diastolic assessment reveals Grade II pseudonormal diastolic function . Mildly dilated right ventricle. The right atrium is mildly dilated. IVC measures .87 cm with inspiratory collapse. No significant valvular abnormalities. The ascending aorta appears mildly dilated. The maximum diameter measures 3.8 cm. Procedure Type of Study TTE procedure:2D Echocardiogram. Procedure Date Date: 05/01/2017 Start: 08:02 AM Study Location: Inpatient Portable Technical Quality: Adequate visualization Additional Indications:nonstemi Appropriate Use Criteria: 9 Patient Status: Routine HR: 65 bpm Allergies - No known allergies. M-Mode/2D Measurements LV Diastolic Dimension: 4.68 cm LV Systolic Dimension: 2.91 cm LV Septum Diastolic: 1.49 cm LV PW Diastolic: 1.54 cm AO Root Dimension: 2.8 cm Cardiac Output: 5.9 l/min AV Cusp Separation: 2.1 cm RV Diastolic Dimension: 3.29 cm LVOT: 2.1 cm LVOT VTI: 26.2 cm RV Base: 3.03 cm LV Stroke volume: 90.7 ml RV Length: 5.98 cm TAPSE: 2.13 cm TDI-S': 13 cm/s Doppler Measurements AV Peak Velocity: 0.92 m/s MV Peak E-Wave: 1.04 m/s AV Peak Gradient: 3.41 mmHg MV Peak A-Wave: 0.77 m/s AV Mean Gradient: 4 mmHg MV E/A Ratio: 1.35 LVOT Peak Velocity: 1.16 m/s MV P1/2t: 55 msec TR Gradient:20.25 mmHg PV Peak Velocity: 0.75 m/s Estimated RAP:10 mmHg PV Peak Gradient: 2.27 mmHg Estimated RVSP: 30 mmHg Estimated PASP: 30.25 mmHg E' Septal Velocity: 0.05 m/s A' Septal Velocity: 0.14 m/s E' Lateral Velocity: 0.06 m/s A' Lateral Velocity: 0.08 m/s Findings Left Ventricle Mild concentric left ventricular hypertrophy. Diastolic assessment reveals Grade II pseudonormal diastolic function . Right Ventricle Mildly dilated right ventricle. Left Atrium Normal left atrial size. Right Atrium The right atrium is mildly dilated. IVC measures .87 cm with inspiratory collapse. Mitral Valve Normal mitral valve structure and function. Aortic Valve Normal aortic valve structure and function. Tricuspid Valve Trivial tricuspid regurgitation by color Doppler. Pulmonic Valve Normal pulmonic valve structure and function. Pericardial Effusion No evidence of pericardial effusion. Miscellaneous The ascending aorta appears mildly dilated. The maximum diameter measures 3.8 cm. Pleural Effusion No evidence of pleural effusion. Contractility Score LV regional wall motion:(0-Non visualized 1-Normal 2-Hypokinesis 3-Akinesis 4-Dyskinesis 5-Aneurysm) Signature dtt: NORBERT SOLIS dtd: 05/01/17 0802 Physician Self Edit
--- NOTE | ~2017-04-30 | CON ---
PATIENT'S NAME: JOHN ALEJANDRA [facility] AGE: 56 Y [address] ROOM: [facility] [place] [place], [place] [address] LOCATION: [facility] ADMIT DATE: 05/02/2017 Consultation DISCHARGE DATE: FAMILY PHYSICIAN: OZZIE AMOR MD ATTENDING PHYSICIAN: Walter Mondragon DATE OF CONSULTATION: 05/02/2017 REFERRING PHYSICIAN: NORBERT SOLIS MD I was asked to see this patient in Telemedicine consultation. Consultation was performed with the assistance of nurse practitioner, Lady Ramos, on 05/02/2017. 35 minutes spent reviewing chart with nurse practitioner, repeating fiore portions of history and examination. I agree with the discussed assessment and plan of care. Travis Lantigua, DO Neurology Telespecialist Services. MD RAINA VACA/cari /[id number] d: t: 05/03/17 0814, CONSULTATION REPORT
--- NOTE | ~2017-04-30 | HP ---
PATIENT'S NAME: JOHN ALEJANDRA [facility] AGE: 56 Y [address] ROOM: [address] [place], [place] [address] LOCATION: GPCU ADMIT DATE: 04/30/2017 History & Physical DISCHARGE DATE: FAMILY PHYSICIAN: OZZIE AMOR MD ATTENDING PHYSICIAN: Walter Mondragon DATE OF SERVICE: CHIEF COMPLAINT: Chest pain. HISTORY OF PRESENTING ILLNESS: This 56-year-old white male with previous history of chronic pain syndrome and opioid dependence was transferred to [facility] from [place] [facility] with complaint of chest pain. Dr. Arthur, bulk sealer operator, had been contacted by telephone, and it was requested that he be transferred here for definitive evaluation and management. He awoke with chest pain this morning. He states he has had paroxysms of substernal aching pain in his chest, which developed while he was walking out of the bedroom. He also felt a little short of breath and lightheaded. He subsequently contacted his daughter who requested that he come to the hospital in [place] for definitive evaluation and management. On his arrival there, EKG showed right bundle branch block and left anterior fascicular block. He had some subtle ST depressions in leads V5 and V6. His troponin initially was negative, but his CK-MB was elevated at 14. A second set of cardiac enzymes has not yet been obtained. He was placed on a heparin drip prior to his transfer here but refused nitroglycerin. After his arrival here, he indicated that he would refuse cardiac stress testing. He states that he had been seen and evaluated by another bulk sealer operator recently, who recommended stress testing, and he felt that he did not need to follow through with that. He did, however, indicate that he would agree to "more heart tests" if that were the wishes of his family. Although he has a variety of other somatic complaints, he indicates that he has actually been feeling well for the last couple of weeks. He denies fevers, chills, or sweats. No significant congestion or cough. He denies headache currently. No dizziness and no nausea. His chest pain has gone at the moment. He denies any significant shortness of breath and no abdominal pain. He has been stooling normally and voids without any problems. He is hampered by chronic pain in the back and right foot and lower extremity. He describes a neuropathic type of pain, which he complains as numbness and burning. He does see Dr. Ricketts for that. PATIENT'S NAME: JOHN ALEJANDRA [facility] AGE: 56 Y [address] ROOM: [address] [place], [place] [address] LOC[facility] ADMIT DATE: 04/30/2017 History & Physical DISCHARGE DATE: FAMILY PHYSICIAN: OZZIE AMOR MD ATTENDING PHYSICIAN: Walter Mondragon ALLERGIES: NO KNOWN DRUG ALLERGIES. ILLNESSES: 1. Chronic pain syndrome. 2. Opioid dependence. 3. Diabetes mellitus type 2. 4. Anxiety, generalized. 5. Diabetic peripheral neuropathy. 6. Hypothyroidism. 7. Essential hypertension. 8. BPH. 9. Lumbar spinal stenosis. CURRENT MEDICATIONS: 1. Xanax 1 mg p.o. b.i.d. 2. Vitamin D3 5000 units p.o. q.week. 3. Lexapro 10 mg p.o. daily. 4. Breo Ellipta 100/25 one puff p.o. daily. 5. Gabapentin 300 mg p.o. t.i.d. 6. Xalatan ophthalmic drops 1 drop each eye at h.s. 7. Levothyroxine 50 mcg p.o. daily. 8. Losartan 50 mg p.o. daily. 9. Metformin 1000 mg p.o. b.i.d. 10. Omeprazole 20 mg p.o. b.i.d. 11. Flomax 0.4 mg p.o. daily. 12. Ambien 10 mg p.o. q.h.s. p.r.n. insomnia. FAMILY HISTORY: Significant for diabetes in his mother. SOCIAL HISTORY: He is and lives in [place]. He has 2 daughters, live nearby, and provide good social assistance. He does have a 30- to 55-ihjw-bnzp history of smoking tobacco, continues to smoke about a pack of cigarettes per day. He also has a history of heavy alcohol use, but reports that he has currently quit. He denies any illicit drug use. REVIEW OF SYSTEMS: As per HPI. All other organ systems reviewed and are negative. OBJECTIVE: VITAL SIGNS: Temperature 98, pulse 70, respirations 18, blood pressure 113/67, weight is 93 kilos. GENERAL: He is anxious, cooperative, seated in the bed, in no acute distress. PATIENT'S NAME: JOHN ALEJANDRA [facility] AGE: 56 Y [address] ROOM: [address] [place], [place] [address] [facility] ADMIT DATE: 04/30/2017 History & Physical DISCHARGE DATE: FAMILY PHYSICIAN: OZZIE AMOR MD ATTENDING PHYSICIAN: Walter Mondragon SKIN: Supple, pink, warm, and dry. There are tattoos over the upper extremities but no skin rashes. He has a healed incision site over the right lower extremity without any complicating features. HEENT: Otherwise, normocephalic. Sclerae nonicteric. Pupils equal, round, and reactive to light and accommodation. Extraocular movements appear intact. Nasal turbinates normal in appearance. Oropharynx clear. Mucous membranes are pink and moist. NECK: Supple. No masses or adenopathy. No thyromegaly. No JVD. No carotid bruits are heard. CHEST: Chest wall is symmetrical. HEART: Regular without murmurs. LUNGS: Diminished bilaterally. No crackles or wheezes are heard. He does have a long expiratory phase. ABDOMEN: Soft, nontender. Bowel sounds present. No mass or hepatosplenomegaly. and RECTAL: Not done. EXTREMITIES: Display no cyanosis or edema. There is some mild clubbing noted. He has some tar staining about the intertriginous areas of the right hand. NEUROLOGICAL: Anxious. Mildly inappropriate but no focal deficits. LABORATORY AND X-RAY DATA: From [place], troponin was reported as "negative," CK-MB 14. ASSESSMENT AND PLAN: 1. Chest pain. We will admit for observation. He has been placed on the ACS pathway. His risk score is 4, and I explained that to him. He adamantly refused to consider cardiac stress testing relating that he had "a bad experience" with this in the past. We will defer to Dr. Arthur regarding the decision about whether or not to proceed with cardiac catheterization. Continue with heparin drip per protocol. Supportive cares and clinical monitoring. We will trend cardiac enzymes and make adjustments to his regimen if necessary. 2. Essential hypertension, adequately controlled. We will monitor the trend and make adjustments as necessary. 3. Diabetes mellitus type 2. We will manage with Accu-Cheks. 4. Chronic pain syndrome. Currently, appears to be adequately controlled with gabapentin. Try to minimize any additional analgesic therapy. 5. Diabetic peripheral neuropathy. As above, continue with gabapentin. 6. Tobaccoism. I spent a good deal of time approximately 10 minutes discussing smoking cessation strategies. He is in a precontemplative phase. He did agree to the nicotine patch while he is inpatient. 7. Deep venous thrombosis prophylaxis. He is going to be fully heparinized. PATIENT'S NAME: JOHN ALEJANDRA [facility] AGE: 56 Y [address] ROOM: [place] [address] [facility] ADMIT DATE: 04/30/2017 History & Physical DISCHARGE DATE: FAMILY PHYSICIAN: OZZIE AMOR MD ATTENDING PHYSICIAN: Walter Mondragon MD NADINE HUFF/modl /[id number] P D: [id number] T: [id number] HISTORY & PHYSICAL
[2017-04-30] MEDS ORDERED: XANAX1 MG PO (16:09)
[2017-04-30] MEDS ORDERED: AMBIEN10 MG PO (16:12)
[2017-04-30] MEDS ORDERED: PRILOSEC20 MG PO (16:12)
[2017-04-30] MEDS ORDERED: FLOMAX0.4 MG PO (16:13)
[2017-04-30] MEDS ORDERED: LEVOTHROID (SY50 MCG PO (16:13)
[2017-04-30] MEDS ORDERED: COZAAR50 MG PO (16:15)
[2017-04-30] MEDS ORDERED: NEURONTIN300 MG PO (16:15)
[2017-04-30] MEDS ORDERED: XALATAN2.5 ML OPHTH (16:41)
[2017-04-30] MEDS ORDERED: BREO ELLIPTA 11 EACH INH (16:43)
[2017-04-30] MEDS ORDERED: LEXAPRO10 MG (16:48)
[2017-04-30] MEDS ORDERED: VITAMIN D35000 UNI1 PO (16:50)
[2017-04-30] MEDS ORDERED: GLUCOPHAGE1000 MG PO (16:51)
[2017-04-30] MEDS ORDERED: AMARYL4 M1 PO (16:53)
[2017-04-30 16:54] LABS: BASOPHIL # 0.1 K/uL (0.0-0.2); BASOPHIL % 0.5 %; EOSINOPHIL # 0.2 K/uL (0.0-0.5); EOSINOPHIL % 2.3 %; HEMATOCRIT 43.8 % (37.0-53.0); HEMOGLOBIN 15.3 g/dL (12.0-17.0); IMMATURE GRANULOCYTE % 0.3 %; LYMPHOCYTE # 2.3 K/uL (0.8-4.0); LYMPHOCYTE % 24.3 %; MCH 30.7 pg (27.0-34.0); MCHC 34.9 gm/dL (32.0-36.5); MONOCYTE # 1.1 K/uL (0.0-1.0); MONOCYTE % 11.7 %; MPV 11.3 fl (9.4-12.4); NEUTROPHIL # (ANC) 5.7 K/uL (1.4-9.0); NEUTROPHIL % 60.9 %; NRBC % 0 /100WBC (0-0.00); PLATELET COUNT 218 K/uL (150-450); RBC 4.98 M/uL (4.00-6.00); RDW-CV 12.8 % (11.9-14.6); WBC 9.4 K/uL (4.0-11.0)
[2017-04-30] MEDS ORDERED: AUGMENTIN250 MG PO (16:55)
[2017-04-30] MEDS ORDERED: NORCO 10-325 T1 EACH PO (16:58)
[2017-04-30 17:00] LABS: INR - (THERAPEUTIC) 0.99 (0.92-1.07); PROTIME 10.4 SECONDS (9.8-11.4); PTT 34 SECONDS (25-32)
[2017-04-30] MEDS ORDERED: LIPITOR80 MG PO (17:00)
[2017-04-30] MEDS ORDERED: NITROSTAT0.4 MG SL (17:02)
[2017-04-30 17:11] LABS: ALBUMIN 3.7 gm/dL (3.5-5.0); ALK PHOS 191 IU/L (33-138); ALT 52 IU/L (12-78); ANION GAP 9.9 (10.0-19.0); AST 40 IU/L (10-40); BLOOD UREA NITROGEN 29 mg/dL (6-24); CALCIUM 8.6 mg/dL (8.5-10.5); CHLORIDE 110 mMol/L (96-110); CO2 26 mMol/L (22-32); CPK 593 IU/L (35-332); CREATININE 1.1 mg/dL (0.6-1.3); POTASSIUM 3.9 mMol/L (3.7-5.1); SODIUM 142 mMol/L (135-145); TOTAL BILIRUBIN 0.6 mg/dL (0.0-1.5); TOTAL PROTEIN 7.5 g/dL (6.0-8.4)
[2017-04-30 22:47] LABS: CPK 554 IU/L (35-332)
[2017-05-01 01:49] LABS: BILIRUBIN URINE NEGATIVE (NEGATIVE); BLOOD URINE NEGATIVE /UL (NEGATIVE); COLOR URINE YELLOW (YELLOW); GLUCOSE URINE 250 mg/dL (NEGATIVE); KETONE URINE 5 mg/dL (NEGATIVE); LEUKOCYTES URINE NEGATIVE /UL (NEGATIVE); NITRITE URINE NEGATIVE (NEGATIVE); PROTEIN URINE 30 mg/dL (NEGATIVE); SPEC GRAVITY URINE 1.025 (1.003-1.035); TURBIDITY URINE CLEAR (CLEAR); UROBILINOGEN URINE NORMAL (NORMAL)
[2017-05-01 01:59] LABS: BACTERIA URINE NEGATIVE (NEGATIVE); EPITHELIAL URINE 0-2 #/HPF (NEGATIVE); MUCUS URINE 1+ (NEGATIVE); RBC URINE NEGATIVE #/HPF (NEGATIVE); WBC URINE NEGATIVE #/HPF (NEGATIVE)
[2017-05-01 04:34] LABS: CPK 378 IU/L (35-332)
[2017-05-01] MEDS ORDERED: CELEXA20 MG PO (10:50)
[2017-05-01 11:04] LABS: CPK 316 IU/L (35-332)
[2017-05-01 16:50] LABS: CPK 243 IU/L (35-332)
[2017-05-02 11:28] LABS: BICARBONATE 25.9 mmol/L (18.0-23.0); PCO2 48 mmHg (35-45); PO2 75 mmHg (80-90)
[2017-05-03 04:15] LABS: BASOPHIL % 0.5 %; EOSINOPHIL # 0.2 K/uL (0.0-0.5); EOSINOPHIL % 2.6 %; HEMATOCRIT 38.4 % (37.0-53.0); HEMOGLOBIN 13.1 g/dL (12.0-17.0); IMMATURE GRANULOCYTE % 0.3 %; LYMPHOCYTE # 1.7 K/uL (0.8-4.0); LYMPHOCYTE % 29.5 %; MCH 30.2 pg (27.0-34.0); MCHC 34.1 gm/dL (32.0-36.5); MCV 88.5 fl (83.0-98.0); MONOCYTE # 0.6 K/uL (0.0-1.0); MONOCYTE % 9.6 %; MPV 11.7 fl (9.4-12.4); NEUTROPHIL # (ANC) 3.4 K/uL (1.4-9.0); NEUTROPHIL % 57.5 %; NRBC % 0 /100WBC (0-0.00); RBC 4.34 M/uL (4.00-6.00); RDW-CV 12.1 % (11.9-14.6); WBC 5.8 K/uL (4.0-11.0)
[2017-05-03 04:19] LABS: PLATELET COUNT 162 K/uL (150-450)
[2017-05-03 04:28] LABS: ALBUMIN 3.1 gm/dL (3.5-5.0); ALK PHOS 150 IU/L (33-138); ALT 39 IU/L (12-78); ANION GAP 10.2 (10.0-19.0); AST 22 IU/L (10-40); BLOOD UREA NITROGEN 16 mg/dL (6-24); CALCIUM 8.2 mg/dL (8.5-10.5); CHLORIDE 108 mMol/L (96-110); CO2 26 mMol/L (22-32); CREATININE 0.8 mg/dL (0.6-1.3); POTASSIUM 4.2 mMol/L (3.7-5.1); SODIUM 140 mMol/L (135-145); TOTAL PROTEIN 6.5 g/dL (6.0-8.4)
[2017-05-03 04:33] LABS: TOTAL BILIRUBIN 0.2 mg/dL (0.0-1.5)
[2017-05-03 11:40] LABS: HEMOGLOBIN 9.5 g/dL (12.0-17.0); MCV 89.1 fl (83.0-98.0); MPV 11.5 fl (9.4-12.4); RDW-CV 12.3 % (11.9-14.6); WBC 11.7 K/uL (4.0-11.0)
[2017-05-03 11:41] LABS: MCH 31.4 pg (27.0-34.0); MCHC 35.2 gm/dL (32.0-36.5); RBC 3.03 M/uL (4.00-6.00)
[2017-05-03 11:46] LABS: INR - (THERAPEUTIC) 1.17 (0.92-1.07)
[2017-05-03 11:48] LABS: PROTIME 12.3 SECONDS (9.8-11.4)
[2017-05-03 12:00] LABS: ALPHA ANGLE 69 degrees; CLOTTING TIME 194 seconds
[2017-05-03 12:01] LABS: ALPHA ANGLE 72 degrees (70-81); CLOT FORMATION TIME 110 seconds; CLOTTING TIME 76 seconds (43-82); MAXIMUM CLOT FIRMNESS 55 mm; MAXIMUM CLOT FIRMNESS 59 mm (51-72); MAXIMUM LYSIS 0 %
[2017-05-03 12:36] LABS: BICARBONATE 27.7 mmol/L (18.0-23.0); PCO2 55 mmHg (35-45)
[2017-05-03 12:42] LABS: PO2 102 mmHg (80-90)
[2017-05-03 12:48] LABS: CALCIUM 8.3 mg/dL (8.5-10.5); CREATININE 1.2 mg/dL (0.6-1.3)
[2017-05-03 13:17] LABS: BICARBONATE 24.5 mmol/L (18.0-23.0); PCO2 41 mmHg (35-45); PO2 141 mmHg (80-90); POTASSIUM 3.7 mEq/L (3.7-5.1); SODIUM 137 mEq/L (135-145)
[2017-05-03 13:18] LABS: BICARBONATE 27.9 mmol/L (18.0-23.0); PCO2 52 mmHg (35-45); PO2 167 mmHg (80-90)
[2017-05-03 13:19] LABS: POTASSIUM 4.8 mEq/L (3.7-5.1); SODIUM 136 mEq/L (135-145)
[2017-05-03 13:22] LABS: BICARBONATE 28.5 mmol/L (18.0-23.0); PCO2 53 mmHg (35-45); PO2 310 mmHg (80-90); POTASSIUM 4.7 mEq/L (3.7-5.1); SODIUM 135 mEq/L (135-145)
[2017-05-03 13:23] LABS: BICARBONATE 26.8 mmol/L (18.0-23.0); PCO2 53 mmHg (35-45); PO2 191 mmHg (80-90)
[2017-05-03 13:24] LABS: POTASSIUM 4.7 mEq/L (3.7-5.1); SODIUM 136 mEq/L (135-145)
[2017-05-03 13:24] LABS: PCO2 42 mmHg (35-45)
[2017-05-03 13:25] LABS: BICARBONATE 23.8 mmol/L (18.0-23.0); PO2 103 mmHg (80-90); SODIUM 137 mEq/L (135-145)
[2017-05-04 04:44] LABS: BICARBONATE 26.5 mmol/L (18.0-23.0)
[2017-05-04 04:46] LABS: PCO2 39 mmHg (35-45); PO2 77 mmHg (80-90)
[2017-05-04 04:49] LABS: HEMOGLOBIN 11.4 g/dL (12.0-17.0); MPV 11.3 fl (9.4-12.4); RDW-CV 12.8 % (11.9-14.6); WBC 10.8 K/uL (4.0-11.0)
[2017-05-04 04:59] LABS: BLOOD UREA NITROGEN 17 mg/dL (6-24); CALCIUM 7.9 mg/dL (8.5-10.5); CHLORIDE 108 mMol/L (96-110); CO2 25 mMol/L (22-32); CREATININE 0.9 mg/dL (0.6-1.3); SODIUM 139 mMol/L (135-145)
[2017-05-04 05:01] LABS: HEMATOCRIT 33.6 % (37.0-53.0); MCH 29.8 pg (27.0-34.0); MCHC 33.9 gm/dL (32.0-36.5); RBC 3.82 M/uL (4.00-6.00)
[2017-05-04 18:19] LABS: ALBUMIN 2.9 gm/dL (3.5-5.0); ANION GAP 11.9 (10.0-19.0); BLOOD UREA NITROGEN 14 mg/dL (6-24); CALCIUM 8.1 mg/dL (8.5-10.5); CHLORIDE 106 mMol/L (96-110); CO2 25 mMol/L (22-32); CREATININE 0.8 mg/dL (0.6-1.3); PHOSPHORUS 2.2 mg/dL (2.5-4.9); POTASSIUM 3.9 mMol/L (3.7-5.1); SODIUM 139 mMol/L (135-145)
[2017-05-05 05:24] LABS: BASOPHIL % 0.2 %; EOSINOPHIL # 0.2 K/uL (0.0-0.5); EOSINOPHIL % 1.5 %; HEMATOCRIT 32.7 % (37.0-53.0); HEMOGLOBIN 11.3 g/dL (12.0-17.0); IMMATURE GRANULOCYTE # 0.1 K/uL (0.0-0.3); IMMATURE GRANULOCYTE % 0.4 %; LYMPHOCYTE # 0.9 K/uL (0.8-4.0); LYMPHOCYTE % 6.9 %; MCH 30.8 pg (27.0-34.0); MCHC 34.6 gm/dL (32.0-36.5); MCV 89.1 fl (83.0-98.0); MONOCYTE # 1.3 K/uL (0.0-1.0); MONOCYTE % 10.6 %; MPV 11.6 fl (9.4-12.4); NEUTROPHIL # (ANC) 9.9 K/uL (1.4-9.0); NEUTROPHIL % 80.4 %; NRBC % 0 /100WBC (0-0.00); PLATELET COUNT 119 K/uL (150-450); RBC 3.67 M/uL (4.00-6.00); RDW-CV 12.8 % (11.9-14.6); WBC 12.3 K/uL (4.0-11.0)
[2017-05-05 05:43] LABS: ALBUMIN 2.7 gm/dL (3.5-5.0); ALK PHOS 112 IU/L (33-138); ALT 47 IU/L (12-78); ANION GAP 11.2 (10.0-19.0); AST 43 IU/L (10-40); BLOOD UREA NITROGEN 15 mg/dL (6-24); CALCIUM 8.1 mg/dL (8.5-10.5); CHLORIDE 104 mMol/L (96-110); CO2 26 mMol/L (22-32); CREATININE 0.7 mg/dL (0.6-1.3); POTASSIUM 4.2 mMol/L (3.7-5.1); SODIUM 137 mMol/L (135-145); TOTAL PROTEIN 5.8 g/dL (6.0-8.4)
[2017-05-05 05:44] LABS: TOTAL BILIRUBIN 0.7 mg/dL (0.0-1.5)
[2017-05-06 05:15] LABS: BASOPHIL % 0.4 %; EOSINOPHIL # 0.3 K/uL (0.0-0.5); EOSINOPHIL % 3.3 %; HEMATOCRIT 34.1 % (37.0-53.0); HEMOGLOBIN 11.7 g/dL (12.0-17.0); IMMATURE GRANULOCYTE % 0.5 %; LYMPHOCYTE % 12.7 %; MCH 30.9 pg (27.0-34.0); MCHC 34.3 gm/dL (32.0-36.5); MONOCYTE # 1.3 K/uL (0.0-1.0); MONOCYTE % 15.5 %; MPV 11.5 fl (9.4-12.4); NEUTROPHIL # (ANC) 5.5 K/uL (1.4-9.0); NEUTROPHIL % 67.6 %; NRBC % 0 /100WBC (0-0.00); PLATELET COUNT 132 K/uL (150-450); RBC 3.79 M/uL (4.00-6.00); RDW-CV 12.7 % (11.9-14.6); WBC 8.2 K/uL (4.0-11.0)
[2017-05-06 05:31] LABS: ALBUMIN 2.6 gm/dL (3.5-5.0); ALK PHOS 113 IU/L (33-138); ALT 34 IU/L (12-78); ANION GAP 8.2 (10.0-19.0); AST 24 IU/L (10-40); BLOOD UREA NITROGEN 21 mg/dL (6-24); CALCIUM 8.3 mg/dL (8.5-10.5); CHLORIDE 104 mMol/L (96-110); CO2 30 mMol/L (22-32); CREATININE 0.9 mg/dL (0.6-1.3); POTASSIUM 4.2 mMol/L (3.7-5.1); SODIUM 138 mMol/L (135-145); TOTAL PROTEIN 6.2 g/dL (6.0-8.4)
[2017-05-06 05:32] LABS: TOTAL BILIRUBIN 0.3 mg/dL (0.0-1.5)
[2017-05-08 04:04] LABS: BASOPHIL % 0.4 %; EOSINOPHIL # 0.4 K/uL (0.0-0.5); HEMATOCRIT 35.9 % (37.0-53.0); IMMATURE GRANULOCYTE # 0.1 K/uL (0.0-0.3); IMMATURE GRANULOCYTE % 0.8 %; LYMPHOCYTE # 1.2 K/uL (0.8-4.0); LYMPHOCYTE % 13.3 %; MCH 30.2 pg (27.0-34.0); MCHC 33.4 gm/dL (32.0-36.5); MCV 90.2 fl (83.0-98.0); MONOCYTE # 1.1 K/uL (0.0-1.0); MONOCYTE % 12.3 %; MPV 10.6 fl (9.4-12.4); NEUTROPHIL # (ANC) 6.2 K/uL (1.4-9.0); NEUTROPHIL % 69.2 %; NRBC % 0 /100WBC (0-0.00); RBC 3.98 M/uL (4.00-6.00); RDW-CV 12.4 % (11.9-14.6); WBC 8.9 K/uL (4.0-11.0)
[2017-05-08 04:05] LABS: PLATELET COUNT 206 K/uL (150-450)
[2017-05-08 04:22] LABS: ALBUMIN 2.6 gm/dL (3.5-5.0); ALK PHOS 115 IU/L (33-138); ALT 25 IU/L (12-78); ANION GAP 11.3 (10.0-19.0); AST 16 IU/L (10-40); BLOOD UREA NITROGEN 23 mg/dL (6-24); CALCIUM 8.7 mg/dL (8.5-10.5); CHLORIDE 98 mMol/L (96-110); CO2 30 mMol/L (22-32); CREATININE 0.8 mg/dL (0.6-1.3); POTASSIUM 4.3 mMol/L (3.7-5.1); SODIUM 135 mMol/L (135-145); TOTAL PROTEIN 6.5 g/dL (6.0-8.4)
[2017-05-08 04:26] LABS: TOTAL BILIRUBIN 0.4 mg/dL (0.0-1.5)
[2017-05-08] MEDS ORDERED: ASPIRIN EC81 MG PO (09:25)
[2017-05-08] MEDS ORDERED: CORDARONE,PACE200 MG PO (09:25)
[2017-05-08] MEDS ORDERED: COLACE100 MG PO (09:27)
[2017-05-08] MEDS ORDERED: LASIX40 MG PO (09:31)
[2017-05-08] MEDS ORDERED: NICODERM / HABIT7 MG PO (09:49)
[2017-05-08] MEDS ORDERED: TOPROL XL25 MG PO (09:49)
[2017-05-08] MEDS ORDERED: POTASSIUM CHLO20 ME1 PO (09:55)
== END 2017-05-08 11:30 | disposition disaster alternative care site (69) | DRG 233 ==
LOC: EDSTATUS 14:00 → GPCU 15:08 → GICU 05-02 09:02 → GPCU 05-02 09:02 → GICU 05-03 06:51 → GPCU 05-04 15:18
PROVIDERS: Hospitalist; Thoracic Surgery (Cardiothoracic Vascular Surgery); ADMIT Family Medicine
PROC: B2111ZZ Fluoroscopy of Multiple Coronary Arteries using Low Osmolar Contrast (ICD-10-PCS; principal; 2017-05-01)
PROC: 4A023N7 Measurement of Cardiac Sampling and Pressure, Left Heart, Percutaneous Approach (ICD-10-PCS; principal; 2017-05-01)
PROC: 0213099 Bypass Coronary Artery, Four or More Arteries from Left Internal Mammary with Autologous Venous Tissue, Open Approach (ICD-10-PCS; 2017-05-03)
DX: I21.4 Non-ST elevation (NSTEMI) myocardial infarction (principal); I50.33 Acute on chronic diastolic (congestive) heart failure; C92.90 Myeloid leukemia, unspecified, not having achieved remission; F11.20 Opioid dependence, uncomplicated; J44.9 Chronic obstructive pulmonary disease, unspecified; D62 Acute posthemorrhagic anemia; I45.2 Bifascicular block; D47.2 Monoclonal gammopathy; E03.9 Hypothyroidism, unspecified; F31.9 Bipolar disorder, unspecified; F41.9 Anxiety disorder, unspecified; G47.33 Obstructive sleep apnea (adult) (pediatric); G89.4 Chronic pain syndrome; I11.0 Hypertensive heart disease with heart failure; I25.10 Atherosclerotic heart disease of native coronary artery without angina pectoris; I24.9 Acute ischemic heart disease, unspecified; N40.0 Benign prostatic hyperplasia without lower urinary tract symptoms; Z72.0 Tobacco use
CPT/HCPCS: C1769; C1894; G0378; J0282; J0583; J0690; J1644; J1650; J1885; J2150; J2250; J2270; J2370; J2405; J2440; J2720; J3010; J3475; J3480; J3490; J7030; J7040; J7060; J7121; P9045; P9047

== ENCOUNTER 2017-05-10 12:07 | Observation (INO) | payer MEDICARE, MEDICAID ==
[~2017-05-10] VITALS: Ht 180.3 cm; Wt 98.2 kg
--- NOTE | ~2017-05-10 | HP ---
PATIENT'S NAME: JOHN ALEJANDRA [facility] AGE: 56 Y [address] ROOM: [place] [address] LOCATION: GPCU ADMIT DATE: 05/10/2017 History & Physical DISCHARGE DATE: FAMILY PHYSICIAN: OZZIE AMOR MD ATTENDING PHYSICIAN: TU CHURCH DATE OF SERVICE: CHIEF COMPLAINT: Generalized pain. HISTORY OF PRESENT ILLNESS: A 56-year-old gentleman with a past medical history of recent CABG done in last 10 days, also have history of chronic pain syndrome and opiate dependence, presented to the emergency department today, complaining of pain all over including his lower back and neck as well as his chest when he coughs, which he states it is sharp in character, increased with coughing and taking deep breath. On further review of systems, he says he does not have any abdominal pain, does not have any headache, does not have any trouble eyes or shortness of breath. He denied any constipation, diarrhea, or any extremity swelling. He denied any PND or orthopnea at this point. REVIEW OF SYSTEMS: All other systems reviewed and were negative except what is mentioned in the HPI. MEDICATIONS: Medications are being reconciled right now. ALLERGIES: NO KNOWN DRUG ALLERGIES. FAMILY HISTORY: Significant for diabetes in mother. SOCIAL HISTORY: He is a lives in [place]. Qulih-exfw-aqti smoking history. Quit smoking one week ago. He said he had a history of heavy alcohol use, but he is not using it anymore. PHYSICAL EXAMINATION: VITAL SIGNS: Blood pressure 119/59, pulse 74, saturating 94% on room air. HEENT: Head is atraumatic, normocephalic. Eyes, nonicteric. No pallor. Oropharynx, moist mucous membranes. GENERAL: He is very drowsy. PATIENT'S NAME: JOHN ALEJANDRA [facility] AGE: 56 Y [address] ROOM: [address] [address] LOCATION: GPCU ADMIT DATE: 05/10/2017 History & Physical DISCHARGE DATE: FAMILY PHYSICIAN: OZZIE AMOR MD ATTENDING PHYSICIAN: TU CHURCH CARDIOVASCULAR: S1 and S2. No murmurs, gallops, or rubs. Sternotomy scar marking wound looks nonpurulent and unremarkable. LUNGS: Clear to auscultation bilaterally. ABDOMEN: Soft, nontender, nondistended. Bowel sounds are present. Trocar incision sites noted. LEGS: No clubbing, cyanosis, or edema. Vein harvesting site incisions noted without any purulence. PSYCH: Appears intoxicated on opioids at this point, very drowsy. Followup very quickly. MUSCULOSKELETAL: No muscle tenderness or joint swelling noted. LABORATORY DATA: EKG was done in the emergency department showed sinus rhythm with right bundle- branch block which is unchanged from the previous EKG. Troponins were 0.05 and 0.06 and are unremarkable given he had a cardiothoracic surgery about 1 week ago. Rest of the lab work was impressive for alkaline phosphatase elevated up to 391, ALT 95, and AST 131. Total bilirubin is normal. CBC showed hemoglobin of 12, platelets 308. ASSESSMENT/PLAN: 1. Chronic pain syndrome. 2. Opiate dependence. 3. Type 2 diabetes. 4. Generalized anxiety. 5. Diabetic neuropathy. 6. Hypertension. 7. Lumbar spinal stenosis. 8. History of monoclonal gammopathy of undetermined significance. 9. Sleep apnea. 10. Elevated liver enzymes. We are going to admit this patient for observation. Ultrasound of the abdomen has been negative given his elevated liver enzymes which are most likely secondary to amiodarone which was recently started or secondary to alcohol use. We are going get blood alcohol level. We will keep an eye on the liver enzymes. We will manage the blood glucose level with sliding scale here. Continue the medication with diabetic neuropathy. The patient appears to be very pain med seekingat this point, we are going to obtain prescriptions from Dr. Phoenix Cedeno, his pain doctor and see what kind of refills he will get. At this point, the emergency department will treat the pain with Toradol 25 mg IM x1. Further recommendations and management will depend on his progress in the hospital and based on the information we get from the med reconciliation. The patient is full code. PATIENT'S NAME: JOHN ALEJANDRA [facility] AGE: 56 Y [address] ROOM: [address] [address] LOCATION: GPCU ADMIT DATE: 05/10/2017 History & Physical DISCHARGE DATE: FAMILY PHYSICIAN: OZZIE AMOR MD ATTENDING PHYSICIAN: TU CHURCH MD JOY CHEEMA/modl /[id number] D: [id number] T: [id number] HISTORY & PHYSICAL
--- NOTE | ~2017-05-10 | DS ---
PATIENT'S NAME: JOHN ALEJANDRA [facility] AGE: 56 Y [address] ROOM: [place] [address] LOCATION: GPCU ADMIT DATE: 05/10/2017 Discharge Summary DISCHARGE DATE: 05/11/2017 FAMILY PHYSICIAN: Ang Brar MD ATTENDING PHYSICIAN: Josep Campbell ADMITTING DIAGNOSIS: Acute on chronic pain. DISCHARGE DIAGNOSIS: Acute on chronic pain. SECONDARY DIAGNOSES: 1. History of coronary artery disease, status post CABG. 2. Pleuritic chest pain. 3. Chest wall chest pain. 4. Diabetes mellitus type 2. 5. Hypothyroidism. 6. Depression. HISTORY OF PRESENT ILLNESS: The patient is a 56-year-old gentleman with past medical history of recent CABG done in the last 10 days, also history of chronic pain syndrome and opiate dependence, presented to the emergency department today, complaining of pain all over including lower back, neck, as well as surgical site pain after CABG. The patient also complained of pleuritic chest pain. The patient was recently discharged after having a CABG on last admission. HOSPITAL COURSE: Apparently, the patient did not have pain medication upon discharge. At [place] pharmacy, his Gibsonia was not refilled as he was recently had a prescription for Gibsonia. The patient reports a complaint of his chronic pain which is back pain and neck pain and also some pleuritic chest pain and incisional CABG chest pain. The patient also noted to have mildly elevated AST and ALT. Repeat lab was normal. Right upper quadrant ultrasound was unremarkable and bilirubin was also normal. The patient was started on [place] with improvement of generalized pain. Case was discussed with Dr. Cedeno, his pain physician. Recommended to discharge the patient on Percocet 10 mg every 4 hours as needed. To follow up with Dr. Brar, his PCP; and Dr. Cedeno, his pain specialist. CONDITION: Stable. DISPOSITION: Home. DISCHARGE MEDICATION: Please see MAR. DISCHARGE INSTRUCTIONS: To follow up with primary care physician and his pain PATIENT'S NAME: JOHN ALEJANDRA [facility] AGE: 56 Y [address] ROOM: [place] [address] LOCATION: GPCU ADMIT DATE: 05/10/2017 Discharge Summary DISCHARGE DATE: 05/11/2017 FAMILY PHYSICIAN: Ang Brar MD ATTENDING PHYSICIAN: Josep Campbell specialist. Discussed about not operating heavy machinery. Follow up with primary care physician and pain specialist. Also repeat CMS on a week from now for followup of mildly elevated LFTs. PHYSICAL EXAMINATION: VITAL SIGNS: Stable. HEAD: Normocephalic, atraumatic. CHEST: Clear to auscultation bilaterally with new surgical scars. ABDOMEN: Soft, nontender, and nondistended. Bowel sounds are present. HEART: Regular rate and rhythm. No murmurs, rubs, or gallops. BOBBIN INSPECTOR: The patient alert and oriented x3. Motor and sensory are grossly intact. Greater than 30 minutes were spent on discharge. MD KALINA VIGIL/cari /[id number] d: 05/11/17 1104 t: 05/21/17 1059, DISCHARGE SUMMARY
--- NOTE | ~2017-05-10 | ER ---
PATIENT'S NAME: JOHN ALEJANDRA [facility] AGE: 56 Y [address] ROOM: [place] [address] LOCATION: GPCU ADMIT DATE: 05/10/2017 ER/Outpatient Report DISCHARGE DATE: FAMILY PHYSICIAN: OZZIE AMOR MD ATTENDING PHYSICIAN: TU CAMPBELL Time of Arrival: 1210 hours. Time of Evaluation: 1215 hours. CHIEF COMPLAINT: Pain, postop CABG. HISTORY OF PRESENT ILLNESS: This is a 56-year-old male who presents to the ER, who recently had a CABG done here by Dr. Hodges at the end of April. The patient was dismissed from the hospital 2 days ago and states that he feels like his pain is out of control. The patient does have a history of chronic pain syndrome and does see Dr. Akin Cedeno, pain specialist, for his pain needs. He states he has been using [place] 2 tablets 3 times a day, which has not been helping. He does not believe he has been running any fevers. He states his pain is located all over his body, but more so on his torso area. He cannot specifically pinpoint where his pain exactly is. He was diaphoretic yesterday. He feels nauseated at times. He has had some loose stools as well. He did try to see his primary care physician prior to coming here, but they told him just to come to the emergency room to be evaluated. The patient denies any cough. He has been having to have help of his fiancee to get up and around more so than he was in the last few days. ALLERGIES: NO KNOWN ALLERGIES. MEDICATIONS: Please see medication list nurse's notes. PAST MEDICAL HISTORY: 1. Chronic pain syndrome, opioid dependency, btk-zvnaock-ffatkfzvx diabetic. 2. Hypertension and hypothyroidism. 3. BPH. 4. Lumbar spinal stenosis. 5. Diabetic peripheral neuropathy. SOCIAL HISTORY: Has a smoking history. No drug abuse according to the patient. REVIEW OF SYSTEMS: PATIENT'S NAME: JOHN ALEJANDRA [facility] AGE: 56 Y [address] ROOM: [place] [address] LOCATION: GPCU ADMIT DATE: 05/10/2017 ER/Outpatient Report DISCHARGE DATE: FAMILY PHYSICIAN: OZZIE AMOR MD ATTENDING PHYSICIAN: TU CAMPBELL All systems reviewed and were negative with the exception of those discussed in the HPI. PHYSICAL EXAMINATION: VITAL SIGNS: Weight 96.9 kg taken, blood pressure is 140/68, pulse 74, respirations 20, temperature 97.7 degrees tympanically, and saturations 95% on room air. Wilson Coma Score is 15. GENERAL: Alert, calm, well-developed male, in mild distress. HEENT: Head: Normocephalic. He does display moist mucous membranes. Eyes: Pupils are equal and reactive to light. NECK: Supple. No lymphadenopathy. LUNGS: Diminished bilaterally. No wheezes or crackles. HEART: Regular rate and rhythm. ABDOMEN: He has generalized tenderness in all 4 quadrants with palpation. He has good bowel sounds throughout. EXTREMITIES: No clubbing or cyanosis. SKIN: He has a closed incision site to the inside of his right knee from his CABG. He also has a close incision down the sternum, it is slightly red, no active drainage from the site. There is no induration noted. He has also 3 incision read to his upper abdomen. They are slightly erythematic in appearance. No induration. No purulent drainage from those areas. LABORATORY DATA AND X-RAYS: CBC: White count is 10.5, hemoglobin is 12.3, and platelets 308. INR is 1.0. CMS: Sodium 134, potassium 4.5, BUN 27, creatinine 0.9, glucose is 222, alkaline phosphatase is 391, AST is 131, ALT is 95, magnesium is 1.5, CPK is 70, CK-MB is 1.0, troponin I is 0.051. ProBNP is 208. Two-hour point of care: CPK is 61, CK-MB is 1.0, and troponin I is 0.062. Amylase is 47. Lipase is 102. EKG was done, shows a right bundle-branch block. He does have a PVC noted as well with occasional PVC. We did compare these to prior EKGs. Chest x-ray, no acute infiltrate was seen. IMPRESSION: 1. Pain control, postop CABG. 2. Chronic pain syndrome. 3. Sgh-qhvbumo-rmnpqqowu diabetic. ASSESSMENT AND PLAN: We did start an IV here in the emergency room. We did give him 4 mg of morphine for his pain and a GI cocktail. We gave him a 500 mL bolus. I did call Dr. Campbell, who is on-call for the Hospitalist Service, and he will be admitting the patient for observation. The patient and the patient's fiancee understand and agree with care. PATIENT'S NAME: JOHN ALEJANDRA [facility] AGE: 56 Y [address] ROOM: [place] [address] [facility] ADMIT DATE: 05/10/2017 ER/Outpatient Report DISCHARGE DATE: FAMILY PHYSICIAN: OZZIE AMOR MD ATTENDING PHYSICIAN: TU CAMPBELL SMITHA SANDOVAL PA-C FOR MD LAMIN GARDUNO/cari /[id number] d: 05/10/171857 t: 05/14/174, OUTPATIENT REPORT
[~2017-05-10 12:07] MED LIST: AMARYL4 M1 PO; AMBIEN10 MG PO; ASPIRIN EC81 MG PO; AUGMENTIN250 MG PO; BREO ELLIPTA 11 EACH INH; CELEXA20 MG PO; COLACE100 MG PO; CORDARONE,PACE200 MG PO; COZAAR50 MG PO; FLOMAX0.4 MG PO; GLUCOPHAGE1000 MG PO; LASIX40 MG PO; LEVOTHROID (SY50 MCG PO; LEXAPRO10 MG; LIPITOR80 MG PO; NEURONTIN300 MG PO; NICODERM / HABIT7 MG PO; NITROSTAT0.4 MG SL; NORCO 10-325 T1 EACH PO; POTASSIUM CHLO20 ME1 PO; PRILOSEC20 MG PO; TOPROL XL25 MG PO; VITAMIN D35000 UNI1 PO; XALATAN2.5 ML OPHTH; XANAX1 MG PO
[2017-05-10 12:40] LABS: BASOPHIL % 0.4 %; EOSINOPHIL # 0.5 K/uL (0.0-0.5); EOSINOPHIL % 5.1 %; HEMATOCRIT 35.7 % (37.0-53.0); HEMOGLOBIN 12.3 g/dL (12.0-17.0); IMMATURE GRANULOCYTE # 0.2 K/uL (0.0-0.3); IMMATURE GRANULOCYTE % 1.4 %; LYMPHOCYTE # 1.2 K/uL (0.8-4.0); LYMPHOCYTE % 11.6 %; MCH 30.5 pg (27.0-34.0); MCHC 34.5 gm/dL (32.0-36.5); MCV 88.6 fl (83.0-98.0); MONOCYTE % 9.6 %; MPV 9.9 fl (9.4-12.4); NEUTROPHIL # (ANC) 7.5 K/uL (1.4-9.0); NEUTROPHIL % 71.9 %; NRBC % 0 /100WBC (0-0.00); RBC 4.03 M/uL (4.00-6.00); WBC 10.5 K/uL (4.0-11.0)
[2017-05-10 12:47] LABS: PROTIME 10.5 SECONDS (9.8-11.4); PTT 28 SECONDS (25-32)
[2017-05-10 12:52] LABS: PLATELET COUNT 308 K/uL (150-450)
[2017-05-10 12:58] LABS: ALBUMIN 2.9 gm/dL (3.5-5.0); ALK PHOS 391 IU/L (33-138); ALT 95 IU/L (12-78); ANION GAP 13.5 (10.0-19.0); AST 131 IU/L (10-40); BLOOD UREA NITROGEN 27 mg/dL (6-24); CALCIUM 8.4 mg/dL (8.5-10.5); CHLORIDE 101 mMol/L (96-110); CO2 24 mMol/L (22-32); CPK 70 IU/L (35-332); CREATININE 0.9 mg/dL (0.6-1.3); MAGNESIUM 1.5 mg/dL (1.8-2.6); POTASSIUM 4.5 mMol/L (3.7-5.1); SODIUM 134 mMol/L (135-145); TOTAL PROTEIN 6.4 g/dL (6.0-8.4)
[2017-05-10 12:59] LABS: TOTAL BILIRUBIN 0.3 mg/dL (0.0-1.5)
--- NOTE | 2017-05-10 17:42 | NUR ---
Pt is 56 y/o male admit for post op pain following CABG on May 03. Attending is hospitalist DR. Washington drowsy at times. Hx hypercholest,SOB w exertion,dizziness,CAD,diverticulitis,polyps,bipolar,depression,anxiety, DM,hypothyroidism. See chart for complete hx. Pt dismissed 2 days ago. Came through ED today. Has been using [place] as needed for pain at home. Pt has hx opioid dependence. Resides at home with his significant other but has been staying with his mother.
--- NOTE | 2017-05-10 17:55 | NUR ---
Significant Event: A/Ox3. Slightly dorwsy at times. IV saline locked. Patient recived 1 dose of IM torodol for pain. Accuchecks AC/HS. notified about med recon. Up with SBA.
[2017-05-11 05:10] LABS: ALBUMIN 2.8 gm/dL (3.5-5.0); ALK PHOS 330 IU/L (33-138); ALT 72 IU/L (12-78); ANION GAP 11.3 (10.0-19.0); AST 57 IU/L (10-40); BLOOD UREA NITROGEN 21 mg/dL (6-24); CALCIUM 8.9 mg/dL (8.5-10.5); CHLORIDE 103 mMol/L (96-110); CO2 28 mMol/L (22-32); CREATININE 0.8 mg/dL (0.6-1.3); POTASSIUM 4.3 mMol/L (3.7-5.1); SODIUM 138 mMol/L (135-145); TOTAL PROTEIN 6.8 g/dL (6.0-8.4)
[2017-05-11 05:11] LABS: BASOPHIL % 0.4 %; EOSINOPHIL # 0.5 K/uL (0.0-0.5); EOSINOPHIL % 4.8 %; HEMATOCRIT 34.3 % (37.0-53.0); HEMOGLOBIN 11.9 g/dL (12.0-17.0); IMMATURE GRANULOCYTE # 0.2 K/uL (0.0-0.3); IMMATURE GRANULOCYTE % 1.5 %; LYMPHOCYTE # 1.3 K/uL (0.8-4.0); LYMPHOCYTE % 12.7 %; MCH 30.7 pg (27.0-34.0); MCHC 34.7 gm/dL (32.0-36.5); MCV 88.6 fl (83.0-98.0); MONOCYTE # 1.1 K/uL (0.0-1.0); MONOCYTE % 10.4 %; MPV 10.2 fl (9.4-12.4); NEUTROPHIL # (ANC) 7.4 K/uL (1.4-9.0); NEUTROPHIL % 70.2 %; NRBC % 0 /100WBC (0-0.00); PLATELET COUNT 320 K/uL (150-450); RBC 3.87 M/uL (4.00-6.00); RDW-CV 12.2 % (11.9-14.6); TOTAL BILIRUBIN 0.4 mg/dL (0.0-1.5); WBC 10.5 K/uL (4.0-11.0)
--- NOTE | 2017-05-11 05:25 | NUR ---
Significant Event: PATIENT IS A/O X3 WITH ON/OFF DROWSINESS. VSS. HR 60-70'S. SBP 130-140'S. AFEBRILE. 02 SATS IN LOW TO MID 90'S ON RA. ON ETCO2 MONITORING R/T DROWSINESS. C/O CONSTANT PAIN IN EPIGASTRIC AREA AND ALSO GENERALIZED JOINT PAIN/STIFFNESS ALONG WITH HEADHACE. 2 TABS NORCO GIVEN X1 WITH RELIEF. ALSO GAVE AMBIAN/ATIVAN FOR SLEEP. LUNGS CLEAR/DIM TO DIM. UP WITH 1A WITH HEART HUGGER/STERNAL PRECAUTIONS. BOWELS ACTIVE. C/O BELCHING AT TIMES. 2 TUMS GIVEN AND GI COCKTAIL GIVEN X1 WITH SOME RELIEF. VOIDS PER URINAL. STERNAL INCISION INTACT WITH EDGES APPROXIMATED, 3 CT SITES INTACT WITH SCABBING, AND HARVEST SITES TO BILATERAL LEG SUTURED AND INTACT. IV TO LEFT WRIST SL. ON ACHS ACCUCHECKS. Follow up: CONTINUE TO MONITOR. POSSBILY HOME TODAY.
--- NOTE | 2017-05-11 09:40 | NUR ---
Diabetes consult: PAtient plans on discharged home today. He was provided with diabetes education during his previous stay and has remained an observation patient. He denies any questions or concerns regarding his blood sugars. He is concerned that his pharmacy did not fill his [place] prescription at the time of his last discharge and states he is needing something for pain. [facility] pharmacy in [place] contacted. Pharmacist reporting that the patient had a script for 180 tablets of Kent filled on April 26, therefore he should have Kent at home. This was communicated to Dr. Cardoso and the patient. The patient will be dismissed home with percocet for pain.
[2017-05-11] MEDS ORDERED: PERCOCET 10-321 EACH PO (11:08)
--- NOTE | 2017-05-11 12:37 | NUR ---
1150 patient given discharge perscriptions and information. taken downstairs in wheelchair-given instructions no to drive himself home with girlfriend-she is driving
== END 2017-05-11 11:55 | disposition disaster alternative care site (69) ==
LOC: GMED 12:07 → GPCU 15:45
PROVIDERS: Family Medicine; ADMIT Internal Medicine
DX: G89.4 Chronic pain syndrome (principal); R07.81 Pleurodynia; E11.40 Type 2 diabetes mellitus with diabetic neuropathy, unspecified; E03.9 Hypothyroidism, unspecified; F32.9 Major depressive disorder, single episode, unspecified; I25.10 Atherosclerotic heart disease of native coronary artery without angina pectoris; F11.20 Opioid dependence, uncomplicated; F41.9 Anxiety disorder, unspecified; G47.30 Sleep apnea, unspecified; M48.06 Spinal stenosis, lumbar region; Z79.891 Long term (current) use of opiate analgesic; Z95.1 Presence of aortocoronary bypass graft; Z79.899 Other long term (current) drug therapy; Z79.82 Long term (current) use of aspirin; R07.9 Chest pain, unspecified
CPT/HCPCS: G0378; G0480; J1650; J1885; J2270; J7030

== ENCOUNTER → 2017-05-22 | Outpatient (CLI) | payer MEDICARE, MEDICAID ==
[~2017-05-22] MED LIST changes: +PERCOCET 10-321 EACH PO
[2017-05-22 14:27] LABS: BASOPHIL # 0.1 K/uL (0.0-0.2); BASOPHIL % 0.6 %; EOSINOPHIL % 11.9 %; HEMOGLOBIN 12.1 g/dL (12.0-17.0); IMMATURE GRANULOCYTE % 0.3 %; LYMPHOCYTE # 1.2 K/uL (0.8-4.0); LYMPHOCYTE % 14.2 %; MCH 30.1 pg (27.0-34.0); MCHC 34.6 gm/dL (32.0-36.5); MCV 87.1 fl (83.0-98.0); MONOCYTE # 0.9 K/uL (0.0-1.0); NEUTROPHIL # (ANC) 5.5 K/uL (1.4-9.0); NRBC % 0 /100WBC (0-0.00); PLATELET COUNT 397 K/uL (150-450); RBC 4.02 M/uL (4.00-6.00); RDW-CV 12.2 % (11.9-14.6); WBC 8.8 K/uL (4.0-11.0)
[2017-05-22 14:43] LABS: ALBUMIN 3.2 gm/dL (3.5-5.0); ALK PHOS 195 IU/L (33-138); ALT 18 IU/L (12-78); ANION GAP 11.1 (10.0-19.0); AST 11 IU/L (10-40); BLOOD UREA NITROGEN 16 mg/dL (6-24); CALCIUM 8.4 mg/dL (8.5-10.5); CHLORIDE 102 mMol/L (96-110); CO2 26 mMol/L (22-32); CREATININE 0.9 mg/dL (0.6-1.3); POTASSIUM 4.1 mMol/L (3.7-5.1); SODIUM 135 mMol/L (135-145); TOTAL PROTEIN 7.4 g/dL (6.0-8.4)
[2017-05-22 14:45] LABS: TOTAL BILIRUBIN 0.2 mg/dL (0.0-1.5)
== END ==
LOC: LNHI 14:18
PROVIDERS: Thoracic Surgery (Cardiothoracic Vascular Surgery)
DX: I25.10 Atherosclerotic heart disease of native coronary artery without angina pectoris (principal); Z79.899 Other long term (current) drug therapy